=== PATIENT | female | born 1950 | race Caucasian/White ===

== ENCOUNTER → 2018-08-05 | Outpatient (CLI) | payer MEDICARE, OTHER ==
--- NOTE | 2018-08-05 15:48 | WOMENS IMAGING REPORT ---
EXAM DESCRIPTION: 3D SCREENING MAMMO BILAT COMPLETED DATE/TIME: 08/05/2018 10:58 am REASON FOR STUDY: BILATERAL SCREENING MAMMO 3D/Z12.31 Z12.31 ENCNTR SCREEN MAMMOGRAM FOR MALIGNANT NEOPLASM OF YISSEL COMPARISON: 07/23/2017 and 07/20/2016. TECHNIQUE: Standard craniocaudal and mediolateral oblique views of each breast recorded using digita l acquisition and breast tomosynthesis. LIMITATIONS: None. FINDINGS: Findings present which are benign by mammographic criteria. No suspicious masses, calcifi cations or architectural distortion. Pertinent benign findings: Stable small circumscribed nodules. Read with the assistance of CAD. .[facility] - R2 Cenova Version 1.3 .[facility] - R2 Cenova Version 1.3 .[facility] - R2 Cenova Version 2.4 .[facility] [place] - R2 Cenova Version 2.4 .[facility] - R2 [employer]ist Version 9.2 Benign mammographic findings may include one or more of the following: Smooth masses, popcorn/rim/co arse calcifications, asymmetries, post-procedure changes, and lesions with long-standing stability. IMPRESSION: BENIGN MAMMOGRAPHIC FINDINGS. BIRADS 2 BREAST DENSITY: b. There are scattered areas of fibroglandular density. BIRAD: 2 BENIGN FINDING(S) RECOMMENDATION: RECOMMENDATION: ROUTINE SCREENING COMMENT: The patient has been notified of the results by letter per SA requirements. Additional no tification policies are in place for contacting patient with suspicious or incomplete findings. Quality ID #[id number]: The [employer] recommends an annual screening mammogram for women aged 40 years or over. This facility utilizes a reminder system to ensure that all patients receive reminder letters, and/or direct phone calls for appointments. This includes reminders for routine scr eening mammograms, diagnostic mammograms, or other Breast Imaging Interventions when appropriate. Th is patient will be placed in the appropriate reminder system. The [employer] (ACR) has developed recommendations for screening MRI of the breast s in certain patient populations, to be used in conjunction with mammography. Breast MRI surveillanc e may be appropriate for women with more than 20% lifetime risk of developing breast cancer as deter mined by genetic testing, significant family history of the disease, or history of mantle radiation f or Hodgkins Disease. ACR Practice Guidelines 2008. DBT Technology DBT is a type of tomographic mammography. With conventional mammography, overlapping breast tissue ma y make lesions difficult to detect, even with good compression. DBT uses an x-ray tube that rotates a round the breast, taking images at different angles. These images are then combined to create thin sl ices of the breast that the radiologist can view as a 3D reconstruction. The [employer] unit can perform full-field digital mammograms (2D imaging); or DBT (3D imaging); or both, in a combination mode that quickly performs both the mammogram and the tomosynthesis scan while the breast is still compressed. PQRS 6045F: Fluoroscopic imaging is not utilized for breast tomosynthesis. TECHNICAL DOCUMENTATION: FINDING NUMBER: (1) ASSESSMENT: (1) JOB ID: [id number] [employer]- All Rights Reserved Reading location - IP/workstation name: [email or web address]
== END ==
LOC: WI 10:27
PROVIDERS: ATTEND Family Medicine
DX: Z12.31 Encounter for screening mammogram for malignant neoplasm of breast (principal)
CPT/HCPCS: 77063; 77067

== ENCOUNTER 2019-03-28 07:17 | Inpatient (IN) | payer MEDICARE, OTHER ==
[2019-03-28] MEDS ORDERED: ONDANSETRON HCL INJ/PF 4 MG/2 ML SDV IV ONE (07:52)
[2019-03-28] MEDS ORDERED: MORPHINE SULFATE 10 MG/ML INJ IV ONE (07:52)
[2019-03-28] MEDS ORDERED: DIPH/PERTUSS(ACELL)/TETANUS VAC/PF 0.5 ML SYR (>=10YO) IM ONE (07:53)
--- NOTE | 2019-03-28 07:57 | ER Document Report ---
ED General - General Chief Complaint: Wrist Injury Stated Complaint: FALL/WRIST PAIN Time Seen by Provider: 03/28/19 07:44 Mode of Arrival: Medic Information source: Patient, Emergency Med Personnel, [facility] Records Notes: 69-year-old female with end-stage renal disease, hypothyroidism, hyperlipidemia, hypertension presents after a trip and fall that occurred at home just prior to arrival. Patient states that she went to walk her dog when she tripped falling forward and striking her hand on a plastic fence and then landing on the ground. Patient denies head injury, loss of consciousness. She states she did land on both knees but denies any knee or hip pain. Patient denies any preceding chest pain, shortness of breath, dizziness. TRAVEL OUTSIDE OF THE [place] IN LAST 30 DAYS: No - HPI Onset: Just prior to arrival Onset/Duration: Sudden, Worse Quality of pain: Throbbing Severity: Moderate Pain Level: 2 Associated symptoms: denies: Chest pain, Nausea, Vomiting, Shortness of breath, Weakness Exacerbated by: Movement Relieved by: Denies Similar symptoms previously: Yes Recently seen / treated by doctor: No - Related Data Allergies/Adverse Reactions: No Known Allergies Allergy (Unverified 03/28/19 07:50) Past Medical History - General Information source: Patient, [facility] Records - Social History Smoking Status: Current Every Day Smoker Cigarette use (# per day): Yes - 15 Smoking Education Provided: Yes - Smoking cessation counseling was provided for 4 minutes at the bedside Frequency of alcohol use: None Drug Abuse: None Lives with: Friend Family History: Reviewed & Not Pertinent Patient has suicidal ideation: No Patient has homicidal ideation: No - Past Medical History Cardiac Medical History: Reports: Hx Hypercholesterolemia, Hx Hypertension Endocrine Medical History: Reports: Hx Hypothyroidism Renal/ Medical History: Reports: Hx End Stage Renal Disease Review of Systems - Review of Systems Notes: REVIEW OF SYSTEMS: CONSTITUTIONAL : Denies fever, chills, or sweats. Denies recent illness. Denies weight loss, recent hospitalizations. EENT: Denies visual changes, eye pain. Denies sore throat, oral lesions, difficulty swallowing. CARDIOVASCULAR: Denies chest pain. Denies palpitations. Denies lower extremity edema. RESPIRATORY: Denies cough. Denies shortness of breath, wheezing. GASTROINTESTINAL: Denies abdominal pain or distention. Denies nausea, vomiting, or diarrhea. Denies blood in vomitus, stools, or per rectum. Denies black, tarry stools. Denies constipation. GENITOURINARY: Denies difficulty urinating, painful urination, frequency, blood in urine, or vaginal discharge. MUSCULOSKELETAL: Denies back or neck pain or stiffness. + joint pain or swelling. SKIN: + Small laceration to the left wrist on the volar aspect HEMATOLOGIC : Denies easy bruising or bleeding. LYMPHATIC: Denies swollen glands. NEUROLOGICAL: Denies confusion or altered mental status. Denies loss of consciousness. Denies dizziness or lightheadedness. Denies headache. Denies weakness or paralysis. Denies problems difficulty with ambulation, slurred speech. Denies sensory loss, numbness, or tingling. Denies seizures. PSYCHIATRIC: Denies anxiety or stress. Denies depression, suicidal ideation, or homicidal ideation. Denies visual or auditory hallucinations. Physical Exam - Vital signs Vitals: Temp Pulse Resp BP Pulse Ox 97.5 F 74 22 H 160/69 H 95 03/28/19 07:24 03/28/19 07:24 03/28/19 07:24 03/28/19 07:24 03/28/19 07:24 - Notes Notes: PHYSICAL EXAMINATION: GENERAL: Well-appearing, well-nourished and in no acute distress. C collar in place. On backboard. GCS 15 HEAD: Atraumatic, normocephalic. EYES: Pupils equal round and reactive to light, extraocular movements intact, sclera anicteric, conjunctiva are normal. ENT: Nares patent, oropharynx clear without exudates. Moist mucous membranes. No hemanotympanum . No blood in nares. No dental fracture NECK: Normal range of motion, supple without lymphadenopathy. Trachea midline LUNGS: Breath sounds clear to auscultation bilaterally and equal. No wheezes rales or rhonchi. HEART: Regular rate and rhythm without murmurs. Pulses intact all throughout. ABDOMEN: Soft, nontender, nondistended abdomen. No guarding, no rebound. No masses appreciated. Musculoskeletal: Left wrist with obvious deformity, ecchymosis, swelling. Small puncture wound on the volar aspect of the left wrist without active bleeding. NEUROLOGICAL: Cranial nerves grossly intact. Normal speech, normal gait. Normal sensory, motor, and reflex exams. PSYCH: Normal mood, normal affect. SKIN: Warm, No active bleeding Course - Re-evaluation Re-evalutation: Wrist X-Ray 03/28/19 07:18 IMPRESSION: Fracture dislocation of the distal radius and ulna. Temp Pulse Resp BP Pulse Ox 97.5 F 74 22 H 160/69 H 95 03/28/19 07:24 03/28/19 07:24 03/28/19 07:24 03/28/19 07:24 03/28/19 07:24 Wrist X-Ray 03/28/19 10:32 IMPRESSION: Successful closed reduction. Laboratory 03/28/19 03/28/19 03/28/19 09:15 09:15 09:15 WBC 9.0 RBC 5.99 H Hgb 16.7 H Hct 51.3 H MCV 86 MCH 27.9 MCHC 32.5 RDW 17.3 H Plt Count 247 Seg Neutrophils % 82.0 H Lymphocytes % 11.9 L Monocytes % 4.4 Eosinophils % 0.9 Basophils % 0.8 Absolute Neutrophils 7.4 Absolute Lymphocytes 1.1 Absolute Monocytes 0.4 Absolute Eosinophils 0.1 Absolute Basophils 0.1 PT 12.3 INR 0.91 APTT 26.7 Sodium 143.1 Potassium 3.4 L Chloride 101 Carbon Dioxide 33 H Anion Gap 9 BUN 24 H Creatinine 1.03 Est GFR ( Amer) > 60 Est GFR (Non-Af Amer) 53 L Glucose 93 Calcium 9.1 Blood Type Antibody Screen 03/28/19 03/28/19 09:15 10:27 WBC RBC Hgb Hct MCV MCH MCHC RDW Plt Count Seg Neutrophils % Lymphocytes % Monocytes % Eosinophils % Basophils % Absolute Neutrophils Absolute Lymphocytes Absolute Monocytes Absolute Eosinophils Absolute Basophils PT INR APTT Sodium Potassium Chloride Carbon Dioxide Anion Gap BUN Creatinine Est GFR ( Amer) Est GFR (Non-Af Amer) Glucose Calcium Blood Type Cancelled A POSITIVE Antibody Screen Cancelled NEGATIVE Temp Pulse Resp BP Pulse Ox 97.5 F 60 18 129/115 H 97 03/28/19 07:24 03/28/19 10:05 03/28/19 13:01 03/28/19 13:01 03/28/19 13:01 Wrist X-Ray 03/28/19 10:32 IMPRESSION: Successful closed reduction. 69-year-old female with end-stage renal disease, hypothyroidism, hyperlipidemia, hypertension presents after a trip and fall that occurred at home just prior to arrival. Patient states that she went to walk her dog when she tripped falling forward and striking her hand on a plastic fence and then landing on the ground. Patient denies head injury, loss of consciousness. She states she did land on both knees but denies any knee or hip pain. Patient denies any preceding chest pain, shortness of breath, dizziness. Vital signs reviewed and patient is hypertensive but afebrile. No other evidence of trauma. X-rays of the wrist were obtained and does show fractures of both the distal radius and ulnar with significant volar displacement. 03/28/19 08:54 Dr. Seo called for consultation of unstable fracture. 03/28/19 10:31 Dr. Seo requesting medical admission and clearance for surgery. I did speak to Dr. Ray who would like me to speak to Dr. Torres to see if she can be evaluated by cardiology this weekend. I did speak to Dr. Beard who states that he can see the patient tomorrow morning and requested that I order an echocardiogram. 03/28/19 11:39 Patient's reduction was successful. Dressing placed on puncture wound. Tetanus updated. Ancef given. CBC, CMP, PT/INR are unremarkable. 03/28/19 13:21 Patient will be admitted to the medical floor. - Vital Signs Vital signs: Temp Pulse Resp BP Pulse Ox 97.5 F 60 18 129/115 H 97 03/28/19 07:24 03/28/19 10:05 03/28/19 13:01 03/28/19 13:01 03/28/19 13:01 - Laboratory Result Diagrams: 03/28/19 09:15 03/28/19 09:15 Laboratory results interpreted by me: 03/28/19 03/28/19 09:15 09:15 RBC 5.99 H Hgb 16.7 H Hct 51.3 H RDW 17.3 H Seg Neutrophils % 82.0 H Lymphocytes % 11.9 L Potassium 3.4 L Carbon Dioxide 33 H BUN 24 H Est GFR (Non-Af Amer) 53 L - Diagnostic Test Radiology reviewed: Image reviewed, Reports reviewed - EKG Interpretation by Me EKG shows normal: Sinus rhythm Rate: Normal Rhythm: NSR Procedures - Conscious Sedation Conscious sedation Time started: 11:38 Consent obtained: Yes Prior complications: Procedural sedation Pt with a severe systemic disease.: P3. - ASA Classification. Airway Evaluation: Large tongue Mallampati Classification: Class 4 Used during procedure: Suction available, IV access obtained, Pulse ox on pt., cafeteria monitor on pt. Medications administered: Fentanyl, Diprivan Reversal agents: None I personally performed/intraservice time: 31-45 min Complications: Yes - Brief episodes of hypoxia quickly resolved with jaw thrust - Joint Reduction/Fracture Care Left Wrist Time completed: 10:14 Consent obtained: Yes Conscious sedation: Yes Pre-procedure NV exam: Yes - Within normal limits Fracture: Closed Post-procedure NV exam: Yes Post-reduction x-ray: Joint reduced Reduction attempts: 1 - Splint placed Complications: Yes - Brief episode of hypoxia Discharge - Discharge Clinical Impression: Left wrist fracture Qualifiers: Encounter type: initial encounter Fracture type: closed Qualified Code(s): S62.102A - Fracture of unspecified carpal bone, left wrist, initial encounter for closed fracture Fall Qualifiers: Encounter type: initial encounter Qualified Code(s): W19.XXXA - Unspecified fall, initial encounter HTN (hypertension) Qualifiers: Hypertension type: unspecified Qualified Code(s): I10 - Essential (primary) hypertension CKD (chronic kidney disease) Qualifiers: Chronic kidney disease stage: unspecified stage Qualified Code(s): N18.9 - Chronic kidney disease, unspecified Condition: Good Disposition: ADMITTED INPATIENT Admitting Provider: Allan (Hospitalist) Unit Admitted: Medical Floor
--- NOTE | 2019-03-28 08:37 | RADIOLOGY REPORT (SQ) ---
EXAM DESCRIPTION: WRIST LEFT 3 VIEWS COMPLETED DATE/TIME: 03/28/2019 7:52 am REASON FOR STUDY: bone tenderness/deformity COMPARISON: None. NUMBER OF VIEWS: Three views. TECHNIQUE: AP, lateral, and oblique radiographic images acquired of the left wrist. LIMITATIONS: None. FINDINGS: MINERALIZATION: Osteopenia. BONES: Comminuted fractures of the distal radius with 1 shaft width volar displacement. Volar disloc ation of the distal ulna. SOFT TISSUES: No foreign body. OTHER: No other significant finding. IMPRESSION: Fracture dislocation of the distal radius and ulna. TECHNICAL DOCUMENTATION: JOB ID: [id number] [employer]- All Rights Reserved Reading location - IP/workstation name: [email or web address]
[2019-03-28] MEDS ORDERED: PROPOFOL INJ 200 MG/20 ML VIAL IV ONE ×2 (09:38→10:03)
[2019-03-28] MEDS ORDERED: FENTANYL CITRATE INJ/PF 100 MCG/2 ML AMPUL IV ONE (09:38)
[2019-03-28 09:39] LABS: ABSOLUTE BASOPHILS # (AUTO) 0.1 10^3/uL (0.0-0.2); ABSOLUTE EOSINOPHILS # (AUTO) 0.1 10^3/uL (0.0-0.6); ABSOLUTE LYMPHOCYTES (AUTO) 1.1 10^3/uL (0.5-4.7); ABSOLUTE MONOCYTES (AUTO) 0.4 10^3/uL (0.1-1.4); ABSOLUTE NEUT (AUTO) 7.4 10^3/uL (1.7-8.2); BASOPHILS % (AUTO) 0.8 % (0-2); EOSINOPHILS % (AUTO) 0.9 % (0-6); HEMATOCRIT 51.3 % (36.0-47.0); HEMOGLOBIN 16.7 g/dL (12.0-15.5); LYMPHOCYTES % (AUTO) 11.9 % (13-45); MEAN CORPUSCULAR HEMOGLOBIN 27.9 pg (27.0-33.4); MEAN CORPUSCULAR HGB CONC 32.5 g/dL (32.0-36.0); MEAN CORPUSCULAR VOLUME 86 fl (80-97); MONOCYTES % (AUTO) 4.4 % (3-13); PLATELET COUNT 247 10^3/uL (150-450); RED BLOOD COUNT 5.99 10^6/uL (3.72-5.28); RED CELL DISTRIBUTION WIDTH 17.3 % (11.5-14.0); TOTAL CELLS COUNTED % (AUTO) 100 %
[2019-03-28 09:42] LABS: INTERNATIONAL RATION (INR) 0.91; PARTIAL THROMBOPLASTIN TIME 26.7 SEC (23.5-35.8); PROTHROMBIN TIME 12.3 SEC (11.4-15.4)
[2019-03-28 10:04] LABS: ANION GAP 9 (5-19); BLOOD UREA NITROGEN 24 mg/dL (7-20); CALCIUM 9.1 mg/dL (8.4-10.2); CARBON DIOXIDE 33 mmol/L (22-30); CHLORIDE 101 mmol/L (98-107); GLUCOSE 93 mg/dL (75-110); POTASSIUM 3.4 mmol/L (3.6-5.0); SODIUM 143.1 mmol/L (137-145)
[2019-03-28] MEDS ORDERED: ACETAMINOPHEN 325 MG TABLET PO PRN (10:58)
[2019-03-28] MEDS ORDERED: ONDANSETRON HCL INJ/PF 4 MG/2 ML SDV IV PRN (10:58)
--- NOTE | 2019-03-28 11:18 | PDOC H&P ---
History of Present Illness Admission Date/PCP: 03/28/19 10:49 TC HARGROVE MD Patient complains of: History of fall with right wrist fracture History of Present Illness: SÁNCHEZ TRISTAN is a 69 year old female With history of hypertension, chronic kidney disease, COPD on home oxygen came to the emergency room after history of fall at home 6:00 this morning. According to the patient she is letting the dogs out she is tripped on the steps and hit the dog cage and came to the emergency room with right wrist pain x-rays indicates right arm distal radius and ulna fracture. The ER physician spoke to Dr. Bon Ray is going to see the patient today and probably do surgery tomorrow. Dr. Garcia also spoke to Dr. Berad he wants to do the echocardio gram today and he will see the patient. I went to see the patient she is comfortably in the bed communicating well agreed to stay in the hospital for further management. Past Medical History Cardiac Medical History: Reports: Hyperlipidema, Hypertension Pulmonary Medical History: Reports: Chronic Obstructive Pulmonary Disease (COPD) Endocrine Medical History: Reports: Hypothyroidism Renal/ Medical History: Reports: End Stage Renal Disease GI Medical History: Reports: None Psychiatric Medical History: Reports: None Past Surgical History Past Surgical History: Reports: Hysterectomy Social History Lives with: Friend Smoking Status: Current Every Day Smoker Frequency of Alcohol Use: Occasional Hx Recreational Drug Use: No Hx Prescription Drug Abuse: No - Advance Directive Resuscitation Status: Full Code Family History Family History: Reviewed & Not Pertinent Parental Family History Reviewed: Yes - History of hypertension Children Family History Reviewed: Yes Sibling(s) Family History Reviewed.: Yes Medication/Allergy Allergies/Adverse Reactions: No Known Allergies Allergy (Unverified 03/28/19 07:50) Review of Systems Constitutional: ABSENT: headache(s), weakness Eyes: ABSENT: visual disturbances Ears: ABSENT: hearing changes Nose, Mouth, and Throat: ABSENT: sore throat Cardiovascular: ABSENT: chest pain Respiratory: ABSENT: dyspnea Gastrointestinal: ABSENT: abdominal pain, dysphagia, heartburn Genitourinary: ABSENT: dysuria, hematuria Musculoskeletal: PRESENT: deformity, other - Complains of right wrist pain and swelling Neurological: PRESENT: other - h/o fall this morning Endocrine: ABSENT: cold intolerance, heat intolerance, polydipsia, polyuria Physical Exam Vital Signs: Temp Pulse Resp BP Pulse Ox 97.5 F 60 18 158/87 H 94 03/28/19 07:24 03/28/19 10:05 03/28/19 10:19 03/28/19 10:19 03/28/19 10:19 Intake & Output 03/27/19 03/28/19 03/29/19 06:59 06:59 06:59 Weight 124.3 kg General appearance: PRESENT: mild distress, obese Head exam: PRESENT: atraumatic Mouth exam: PRESENT: moist, tongue midline Teeth exam: PRESENT: poor dentation Neck exam: ABSENT: carotid bruit, JVD, lymphadenopathy, thyromegaly Respiratory exam: PRESENT: decreased breath sounds Cardiovascular exam: PRESENT: tachycardia GI/Abdominal exam: PRESENT: normal bowel sounds, soft. ABSENT: distended, guarding, mass, organolmegaly, rebound, tenderness Rectal exam: PRESENT: deferred Extremities exam: PRESENT: other - Right wrist is wrapped in Tyler wrap. Neurological exam: PRESENT: alert, awake, oriented to person, oriented to place, oriented to time, oriented to situation, CN II-XII grossly intact. ABSENT: motor sensory deficit Psychiatric exam: PRESENT: appropriate affect, normal mood. ABSENT: homicidal ideation, suicidal ideation Results Laboratory Results: 03/28/19 09:15 03/28/19 09:15 03/28/19 03/28/19 03/28/19 09:15 09:15 09:15 WBC 9.0 RBC 5.99 H Hgb 16.7 H Hct 51.3 H MCV 86 MCH 27.9 MCHC 32.5 RDW 17.3 H Plt Count 247 Seg Neutrophils % 82.0 H Lymphocytes % 11.9 L Monocytes % 4.4 Eosinophils % 0.9 Basophils % 0.8 Absolute Neutrophils 7.4 Absolute Lymphocytes 1.1 Absolute Monocytes 0.4 Absolute Eosinophils 0.1 Absolute Basophils 0.1 Sodium 143.1 Potassium 3.4 L Chloride 101 Carbon Dioxide 33 H Anion Gap 9 BUN 24 H Creatinine 1.03 Est GFR ( Amer) > 60 Est GFR (Non-Af Amer) 53 L Glucose 93 Calcium 9.1 Blood Type Cancelled Antibody Screen Cancelled Assessment and Plan - Diagnosis (1) Left wrist fracture Qualifiers: Encounter type: initial encounter Fracture type: closed Qualified Code(s): S62.102A - Fracture of unspecified carpal bone, left wrist, initial encounter for closed fracture Is this a current diagnosis for this admission?: Yes Plan: 03/28/2019-elderly female with history of hypertension CKD admitted with fall and right wrist fracture. She is going to admitted to [facility] Dr. Ferraro was notified by the ER I spoke to Dr. Beard he wants echocardiogram done today and. She is going to be on GI prophylaxis and mechanical DVT prophylaxis not starting any Lovenox because possible of surgery tomorrow morning. To start on IV morphine 1 mg every 4 PRN for pain. Aspiration fall seizure precautions are requested. To restart her home medications. She is going to be n.p.o. from midnight. PT consult OT consult was requested dialysis social worker consult was requested. (2) Fall Qualifiers: Encounter type: initial encounter Qualified Code(s): W19.XXXA - Unspecified fall, initial encounter Is this a current diagnosis for this admission?: Yes Plan: 03/28/2019-patient admitted with history of fall fall precautions are requested aspiration precautions are requested physical therapy consult was requested. (3) HTN (hypertension) Is this a current diagnosis for this admission?: No Plan: 03/28/2019-patient has history of chronic hypertension essential hypertension plan is to restart her home medications during the hospital stay. (4) CKD (chronic kidney disease) Is this a current diagnosis for this admission?: No Plan: 03/28/2019-patient given the history of end-stage renal disease but creatinine today is 1.03 within normal limits. Plan is to closely monitor the labs on daily basis. (5) Hypokalemia Is this a current diagnosis for this admission?: Yes Plan: 03/28/2019-patient serum potassium is 3.4 which is going to be supplemented today. - Time Time Spent with patient: 25-34 minutes Medications reviewed and adjusted accordingly: Yes Anticipated discharge: SNF
--- NOTE | 2019-03-28 11:27 | RADIOLOGY REPORT (SQ) ---
EXAM DESCRIPTION: WRIST LEFT 2 VIEWS COMPLETED DATE/TIME: 03/28/2019 10:40 am REASON FOR STUDY: post reduction COMPARISON: Earlier same day. NUMBER OF VIEWS: Two views. TECHNIQUE: AP and lateral radiographic images acquired of the left wrist. LIMITATIONS: None. FINDINGS: There has been placement of an external cast. Ulnar dislocation has been reduced. Improv ed alignment of distal radial fracture. IMPRESSION: Successful closed reduction. TECHNICAL DOCUMENTATION: JOB ID: [id number] [employer]- All Rights Reserved Reading location - IP/workstation name: [email or web address]
[2019-03-28 12:25] LABS: TROPONIN I 0.017 ng/mL
[2019-03-28 12:26] LABS: CREATINE KINASE MB 1.15 ng/mL (<4.55)
--- NOTE | 2019-03-28 12:37 | PDOC CONSULTATION ---
Consultation Consult Date: 03/28/19 Attending physician:: [facility] WILLIAM Provider Consulted: ZEN MCKENNA History of Present Illness Admission Date/PCP: 03/28/19 10:49 TC HARGROVE MD Patient complains of: Left wrist pain History of Present Illness: SÁNCHEZ TRISTAN is a 69 year old female who tripped and sustained a fall onto her outstretched left wrist. Was brought to the emergency room where x-rays demonstrated fracture according to the emergency room closed reduction was performed there is a small puncture wounds volarly weekly outside in as opposed to open fracture but was given antibiotics prophylactically. Patient states pain is worse with motion. Denies numbness. Notes previous injury on the same wrist but that essentially healed without limitations. Pain 8/. Past Medical History Cardiac Medical History: Reports: Hyperlipidema, Hypertension Pulmonary Medical History: Reports: Chronic Obstructive Pulmonary Disease (COPD) Endocrine Medical History: Reports: Hypothyroidism Renal/ Medical History: Reports: End Stage Renal Disease GI Medical History: Reports: None Psychiatric Medical History: Reports: None Past Surgical History Past Surgical History: Reports: Hysterectomy Social History Lives with: Friend Smoking Status: Current Every Day Smoker Frequency of Alcohol Use: Occasional Hx Recreational Drug Use: No Hx Prescription Drug Abuse: No - Advance Directive Resuscitation Status: Full Code Family History Family History: Reviewed & Not Pertinent Parental Family History Reviewed: No Children Family History Reviewed: No Sibling(s) Family History Reviewed.: No Medication/Allergy Allergies/Adverse Reactions: No Known Allergies Allergy (Unverified 03/28/19 07:50) Review of Systems Constitutional: ABSENT: chills, fever(s), headache(s), weight gain, weight loss Eyes: ABSENT: visual disturbances Ears: ABSENT: hearing changes Cardiovascular: ABSENT: chest pain, dyspnea on exertion, edema, orthropnea, palpitations Respiratory: ABSENT: cough, hemoptysis Gastrointestinal: ABSENT: abdominal pain, constipation, diarrhea, hematemesis, hematochezia, nausea, vomiting Genitourinary: ABSENT: dysuria, hematuria Musculoskeletal: PRESENT: as per HPI Integumentary: ABSENT: rash, wounds Neurological: ABSENT: abnormal gait, abnormal speech, confusion, dizziness, focal weakness, syncope Psychiatric: ABSENT: anxiety, depression, homidical ideation, suicidal ideation Endocrine: ABSENT: cold intolerance, heat intolerance, menstrual abnormalities, polydipsia, polyuria Hematologic/Lymphatic: ABSENT: easy bleeding, easy bruising, lymphadenopathy Physical Exam Vital Signs: Temp Pulse Resp BP Pulse Ox 97.5 F 60 20 149/65 H 94 03/28/19 07:24 03/28/19 10:05 03/28/19 12:00 03/28/19 12:00 03/28/19 12:01 Intake & Output 03/27/19 03/28/19 03/29/19 06:59 06:59 06:59 Weight 124.3 kg General appearance: PRESENT: no acute distress, well-developed, well-nourished Head exam: PRESENT: atraumatic, normocephalic Eye exam: PRESENT: conjunctiva pink, EOMI, PERRLA. ABSENT: scleral icterus Ear exam: PRESENT: normal external ear exam Mouth exam: PRESENT: moist, tongue midline Neck exam: PRESENT: full ROM. ABSENT: carotid bruit, JVD, lymphadenopathy, thyromegaly Respiratory exam: PRESENT: unlabored Cardiovascular exam: PRESENT: RRR. ABSENT: diastolic murmur, rubs, systolic murmur Pulses: PRESENT: normal dorsalis pedis pul, +2 pedal pulses bilateral Vascular exam: PRESENT: normal capillary refill GI/Abdominal exam: PRESENT: normal bowel sounds, soft. ABSENT: distended, guard ing, mass, organolmegaly, rebound, tenderness Rectal exam: PRESENT: deferred Musculoskeletal exam: PRESENT: other - Left wrist: Splint intact. Intact sensation to light touch. Two-point discrimination 5 mm median ulnar nerve distribution. Intact IP/MP flexion/extension. EPL/FPL intact. Compartments soft and compressible no sign of compartment syndrome. Neurological exam: PRESENT: alert, awake, oriented to person, oriented to place, oriented to time, oriented to situation, CN II-XII grossly intact. ABSENT: motor sensory deficit Psychiatric exam: PRESENT: appropriate affect, normal mood. ABSENT: homicidal ideation, suicidal ideation Skin exam: PRESENT: dry, intact, warm. ABSENT: cyanosis, rash Results Laboratory Results: 03/28/19 09:15 03/28/19 09:15 03/28/19 03/28/19 03/28/19 09:15 09:15 09:15 WBC 9.0 RBC 5.99 H Hgb 16.7 H Hct 51.3 H MCV 86 MCH 27.9 MCHC 32.5 RDW 17.3 H Plt Count 247 Seg Neutrophils % 82.0 H Lymphocytes % 11.9 L Monocytes % 4.4 Eosinophils % 0.9 Basophils % 0.8 Absolute Neutrophils 7.4 Absolute Lymphocytes 1.1 Absolute Monocytes 0.4 Absolute Eosinophils 0.1 Absolute Basophils 0.1 Sodium 143.1 Potassium 3.4 L Chloride 101 Carbon Dioxide 33 H Anion Gap 9 BUN 24 H Creatinine 1.03 Est GFR ( Amer) > 60 Est GFR (Non-Af Amer) 53 L Glucose 93 Calcium 9.1 Blood Type Cancelled Antibody Screen Cancelled 03/28/19 10:27 WBC RBC Hgb Hct MCV MCH MCHC RDW Plt Count Seg Neutrophils % Lymphocytes % Monocytes % Eosinophils % Basophils % Absolute Neutrophils Absolute Lymphocytes Absolute Monocytes Absolute Eosinophils Absolute Basophils Sodium Potassium Chloride Carbon Dioxide Anion Gap BUN Creatinine Est GFR ( Amer) Est GFR (Non-Af Amer) Glucose Calcium Blood Type A POSITIVE Antibody Screen NEGATIVE 03/28/19 03/28/19 09:15 09:15 Creatine Kinase 102 CK-MB (CK-2) 1.15 Troponin I 0.017 Impressions: Wrist X-Ray 03/28/19 10:32 IMPRESSION: Successful closed reduction. Status: Image reviewed by me - Pre-and post reduction radiographs of the left wrist demonstrate extra-articular displaced distal radius fracture with associated ulnar styloid fracture improved alignment after reduction. Assessment & Plan - Diagnosis (1) Colles' fracture of left radius Qualifiers: Encounter type: initial encounter Fracture type: open Open fracture type: open type I or II Qualified Code(s): S52.532B - Colles' fracture of left radius, initial encounter for open fracture type I or II Is this a current diagnosis for this admission?: Yes Plan: According to the emergency room physician there was small puncture hole volarly which may indicate open fracture however may also be outside in prophylactically patient will be treated with Ancef and the area was irrigated. At this point we will proceed with operative intervention of the distal radius once patient is medically optimized for operative intervention given her multiple medical comorbidities anticipate operative treatment on 03/30/2019. Risks and benefits of the surgical procedure were explained to the patient patient has verbalized understanding consented for surgical procedure which includes open reduction internal fixation left distal radius fracture. Risks include anesthetic complications, excessive bleeding, infection, injury to surrounding nerves, vessels and tendons, bruising, healing difficulties, scar formation, hardware complication, posttraumatic arthritis and any unforseen complication.
[2019-03-28] MEDS: OXYCODONE-ACETAMINOPHEN 5-325 MG TABLET PO PRN ×2 (12:42→20:32)
[2019-03-28] MEDS: CEFAZOLIN 1 GM/D5W RTU 1 GM/50 ML RTUPB IV SCH ×2 (12:44→17:43)
[2019-03-28 16:28] LABS: CREATINE KINASE MB 1.48 ng/mL (<4.55); TROPONIN I 0.032 ng/mL
[2019-03-28] MEDS ORDERED: CEFAZOLIN 2 GM/D5W RTU 2 GM/50 ML RTUPB IV SCH (18:00)
[2019-03-28] MEDS: FAMOTIDINE INJ/PF 20 MG/2 ML SDV IV SCH (21:45)
[2019-03-28 22:31] LABS: CREATINE KINASE MB 1.47 ng/mL (<4.55); TROPONIN I 0.017 ng/mL
--- NOTE | 2019-03-28 22:43 | EKG REPORT ---
SEVERITY:- ABNORMAL ECG - SINUS RHYTHM NONSPECIFIC INTRAVENTRICULAR CONDUCTION DELAY : Confirmed by: Marietta Beard MD 28-Mar-2019 22:42:03
[2019-03-29] MEDS: MORPHINE SULFATE 10 MG/ML INJ IV PRN ×2 (00:01→05:38)
[2019-03-29] MEDS: CEFAZOLIN SODIUM 2 GM in DEXTROSE 5%-WATER 100 ML IV SCH ×4 (00:06→17:38)
[2019-03-29] MEDS: OXYCODONE-ACETAMINOPHEN 5-325 MG TABLET PO PRN (04:23)
[2019-03-29 04:59] LABS: ABSOLUTE EOSINOPHILS # (AUTO) 0.2 10^3/uL (0.0-0.6); ABSOLUTE LYMPHOCYTES (AUTO) 1.6 10^3/uL (0.5-4.7); ABSOLUTE MONOCYTES (AUTO) 0.6 10^3/uL (0.1-1.4); ABSOLUTE NEUT (AUTO) 5.7 10^3/uL (1.7-8.2); BASOPHILS % (AUTO) 0.3 % (0-2); HEMATOCRIT 44.5 % (36.0-47.0); HEMOGLOBIN 14.7 g/dL (12.0-15.5); LYMPHOCYTES % (AUTO) 20.1 % (13-45); MEAN CORPUSCULAR HEMOGLOBIN 28.1 pg (27.0-33.4); MEAN CORPUSCULAR VOLUME 85 fl (80-97); MONOCYTES % (AUTO) 6.9 % (3-13); PLATELET COUNT 186 10^3/uL (150-450); RED BLOOD COUNT 5.21 10^6/uL (3.72-5.28); RED CELL DISTRIBUTION WIDTH 16.9 % (11.5-14.0); SEGMENTED NEUTROPHILS % (AUTO) 70.7 % (42-78); TOTAL CELLS COUNTED % (AUTO) 100 %
[2019-03-29 05:03] LABS: INTERNATIONAL RATION (INR) 0.96; PROTHROMBIN TIME 12.8 SEC (11.4-15.4)
[2019-03-29 05:20] LABS: ALANINE AMINOTRANSFERASE 17 U/L (9-52); ALBUMIN 3.4 g/dL (3.5-5.0); ALKALINE PHOSPHATASE 86 U/L (38-126); ANION GAP 7 (5-19); ASPARTATE AMINO TRANSFERASE 26 U/L (14-36); BILIRUBIN,DIRECT 0.2 mg/dL (0.0-0.4); BILIRUBIN,TOTAL 0.5 mg/dL (0.2-1.3); BLOOD UREA NITROGEN 23 mg/dL (7-20); CALCIUM 8.9 mg/dL (8.4-10.2); CARBON DIOXIDE 32 mmol/L (22-30); CHLORIDE 100 mmol/L (98-107); CHOLESTEROL 127.22 mg/dL (0-200); GLUCOSE 101 mg/dL (75-110); POTASSIUM 3.7 mmol/L (3.6-5.0); SODIUM 139.2 mmol/L (137-145); TOTAL PROTEIN 5.8 g/dL (6.3-8.2); TRIGLYCERIDES 110 mg/dL (<150)
[2019-03-29 05:32] LABS: DIRECT LDL 56 mg/dL (<100)
[2019-03-29] MEDS ORDERED: ALBUTEROL SULFATE HFA (90 MCG/PUFF) 200 PUFF/8.5 GM MDI IH PRN (10:06)
[2019-03-29] MEDS ORDERED: LEVOTHYROXINE SODIUM 0.05 MG TABLET PO SCH (10:15)
[2019-03-29] MEDS ORDERED: DEXTROSE 50%-WATER 25 GM/50 ML DISP.SYRIN IV PRN ×2 (10:51)
[2019-03-29] MEDS ORDERED: GLUCAGON,HUMAN RECOMB 1 MG INJ SUBCUT PRN (10:51)
[2019-03-29] MEDS ORDERED: DEXTROSE 40% GEL 15 GM TUBE PO PRN ×2 (10:51)
--- NOTE | 2019-03-29 10:51 | PDOC PROGRESS REPORT ---
Subjective Progress Note for:: 03/29/19 Subjective:: Patient lying in bed comfortably. No issues overnight. States the numbness in her fingers have resolved. After further questioning however she has see me in the past for carpal tunnel syndrome and does continue to have occasional symptoms. Reason For Visit: RIGHT ARM FRACTURE Physical Exam Vital Signs: Temp Pulse Resp BP Pulse Ox 97.9 F 70 18 134/45 H 90 L 03/29/19 08:07 03/29/19 08:07 03/29/19 08:07 03/29/19 08:07 03/29/19 08:07 Intake & Output 03/28/19 03/29/19 03/30/19 06:59 06:59 06:59 Intake Total 1000 Balance 1000 Weight 125.7 kg General appearance: PRESENT: no acute distress, well-developed, well-nourished Head exam: PRESENT: atraumatic, normocephalic Eye exam: PRESENT: conjunctiva pink, EOMI, PERRLA. ABSENT: scleral icterus Ear exam: PRESENT: normal external ear exam Mouth exam: PRESENT: moist, tongue midline Neck exam: PRESENT: full ROM. ABSENT: carotid bruit, JVD, lymphadenopathy, thyromegaly Cardiovascular exam: PRESENT: RRR. ABSENT: diastolic murmur, rubs, systolic murmur Pulses: PRESENT: normal dorsalis pedis pul, +2 pedal pulses bilateral Vascular exam: PRESENT: normal capillary refill GI/Abdominal exam: PRESENT: normal bowel sounds, soft. ABSENT: distended, guarding, mass, organolmegaly, rebound, tenderness Rectal exam: PRESENT: deferred Musculoskeletal exam: PRESENT: other - Left upper extremity: Splint intact. Intact flexion extension of the IP/MP joints. EPL/FPL intact. Cap refill less than 2 seconds. Two-point discrimination 5-6 mm median/ulnar nerve distribution. No pain with passive stretch. Compartments soft and compressible. Neurological exam: PRESENT: alert, awake, oriented to person, oriented to place, oriented to time, oriented to situation, CN II-XII grossly intact. ABSENT: motor sensory deficit Psychiatric exam: PRESENT: appropriate affect, normal mood. ABSENT: homicidal ideation, suicidal ideation Skin exam: PRESENT: dry, intact, warm. ABSENT: cyanosis, rash Results Laboratory Results: 03/29/19 04:19 03/29/19 04:19 03/28/19 03/29/19 03/29/19 10:27 04:19 04:19 WBC 8.0 RBC 5.21 Hgb 14.7 Hct 44.5 MCV 85 MCH 28.1 MCHC 33.0 RDW 16.9 H Plt Count 186 Seg Neutrophils % 70.7 Lymphocytes % 20.1 Monocytes % 6.9 Eosinophils % 2.0 Basophils % 0.3 Absolute Neutrophils 5.7 Absolute Lymphocytes 1.6 Absolute Monocytes 0.6 Absolute Eosinophils 0.2 Absolute Basophils 0.0 Sodium 139.2 Potassium 3.7 Chloride 100 Carbon Dioxide 32 H Anion Gap 7 BUN 23 H Creatinine 1.06 Est GFR ( Amer) > 60 Est GFR (Non-Af Amer) 51 L Glucose 101 Calcium 8.9 Magnesium 2.5 H Total Bilirubin 0.5 AST 26 ALT 17 Alkaline Phosphatase 86 Total Protein 5.8 L Albumin 3.4 L Triglycerides 110 Cholesterol 127.22 LDL Cholesterol Direct 56 VLDL Cholesterol 22.0 HDL Cholesterol 54 TSH Blood Type A POSITIVE Antibody Screen NEGATIVE 03/29/19 04:19 WBC RBC Hgb Hct MCV MCH MCHC RDW Plt Count Seg Neutrophils % Lymphocytes % Monocytes % Eosinophils % Basophils % Absolute Neutrophils Absolute Lymphocytes Absolute Monocytes Absolute Eosinophils Absolute Basophils Sodium Potassium Chloride Carbon Dioxide Anion Gap BUN Creatinine Est GFR ( Amer) Est GFR (Non-Af Amer) Glucose Calcium Magnesium Total Bilirubin AST ALT Alkaline Phosphatase Total Protein Albumin Triglycerides Cholesterol LDL Cholesterol Direct VLDL Cholesterol HDL Cholesterol TSH 12.30 H Blood Type Antibody Screen 03/28/19 03/28/19 03/28/19 09:15 09:15 15:50 Creatine Kinase 102 141 H CK-MB (CK-2) 1.15 Troponin I 0.017 03/28/19 03/28/19 03/28/19 15:50 21:42 21:42 Creatine Kinase 161 H CK-MB (CK-2) 1.48 1.47 Troponin I 0.032 0.017 Impressions: Wrist X-Ray 03/28/19 10:32 IMPRESSION: Successful closed reduction. Assessment & Plan - Diagnosis (1) Colles' fracture of left radius Qualifiers: Encounter type: initial encounter Fracture type: open Open fracture type: open type I or II Qualified Code(s): S52.532B - Colles' fracture of left radius, initial encounter for open fracture type I or II Is this a current diagnosis for this admission?: Yes Plan: Plan is to proceed with operative treatment on 03/30/2019 once patient is medically optimized. We will continue Ancef prophylactically. Also discussed addition of carpal tunnel release given patient's previous history and review of my office notes which patient had been treated for in the nonoperatively for in the past. After discussing treatment options once again patient verbalized understanding consented for left wrist open reduction to fixation distal radius fracture with carpal tunnel release.
[2019-03-29] MEDS: NICOTINE 14 MG/24 HR PATCH.TD24 TD SCH ×2 (10:54→11:13)
[2019-03-29] MEDS: OXYCODONE HCL IR 5 MG TABLET PO PRN ×3 (10:54→22:47)
[2019-03-29] MEDS: POTASSIUM CHLORIDE 10 MEQ CAPSULE.ER PO SCH (10:54)
[2019-03-29] MEDS: FAMOTIDINE INJ/PF 20 MG/2 ML SDV IV SCH ×2 (11:05→22:47)
[2019-03-29] MEDS ORDERED: FUROSEMIDE 80 MG TABLET PO SCH (18:00)
--- NOTE | 2019-03-29 19:54 | PDOC PROGRESS REPORT ---
Subjective Progress Note for:: 03/29/19 Subjective:: This patient is feeling pretty good today. No chest pain or difficulty breathing. No nausea or vomiting. Her only complaint is that she does have left arm pain at the fracture site. The pain is also radiating into her elbow. Reason For Visit: RIGHT ARM FRACTURE Physical Exam Vital Signs: Temp Pulse Resp BP Pulse Ox 98.3 F 62 18 115/57 L 95 03/29/19 16:32 03/29/19 16:32 03/29/19 16:32 03/29/19 16:32 03/29/19 16:32 Intake & Output 03/28/19 03/29/19 03/30/19 06:59 06:59 06:59 Intake Total 1000 840 Output Total 200 Balance 1000 640 Weight 125.7 kg General appearance: PRESENT: no acute distress, cooperative, obese Head exam: PRESENT: atraumatic, normocephalic Eye exam: ABSENT: conjunctival injection, scleral icterus Ear exam: PRESENT: normal external ear exam Mouth exam: PRESENT: moist, neck supple, tongue midline Neck exam: ABSENT: tracheostomy Respiratory exam: PRESENT: clear to auscultation sundeep, unlabored. ABSENT: rales, rhonchi, wheezes Cardiovascular exam: PRESENT: RRR. ABSENT: systolic murmur Pulses: PRESENT: normal radial pulses GI/Abdominal exam: PRESENT: normal bowel sounds, soft. ABSENT: distended, firm, guarding, tenderness Rectal exam: PRESENT: deferred Gentrourinary exam: ABSENT: indwelling catheter Extremities exam: PRESENT: other - Left distal arm is casted, sensation is intact distally. ABSENT: pedal edema Musculoskeletal exam: PRESENT: ambulatory - With minimal assistance Neurological exam: PRESENT: alert, awake, oriented to person, oriented to place, oriented to time, oriented to situation, CN II-XII grossly intact Psychiatric exam: PRESENT: appropriate affect. ABSENT: anxious Skin exam: PRESENT: dry, intact, warm Results Laboratory Results: 03/29/19 04:19 03/29/19 04:19 03/29/19 03/29/19 03/29/19 04:19 04:19 04:19 WBC 8.0 RBC 5.21 Hgb 14.7 Hct 44.5 MCV 85 MCH 28.1 MCHC 33.0 RDW 16.9 H Plt Count 186 Seg Neutrophils % 70.7 Lymphocytes % 20.1 Monocytes % 6.9 Eosinophils % 2.0 Basophils % 0.3 Absolute Neutrophils 5.7 Absolute Lymphocytes 1.6 Absolute Monocytes 0.6 Absolute Eosinophils 0.2 Absolute Basophils 0.0 Sodium 139.2 Potassium 3.7 Chloride 100 Carbon Dioxide 32 H Anion Gap 7 BUN 23 H Creatinine 1.06 Est GFR ( Amer) > 60 Est GFR (Non-Af Amer) 51 L Glucose 101 Calcium 8.9 Magnesium 2.5 H Total Bilirubin 0.5 AST 26 ALT 17 Alkaline Phosphatase 86 Total Protein 5.8 L Albumin 3.4 L Triglycerides 110 Cholesterol 127.22 LDL Cholesterol Direct 56 VLDL Cholesterol 22.0 HDL Cholesterol 54 TSH 12.30 H 03/28/19 03/28/19 03/28/19 09:15 09:15 15:50 Creatine Kinase 102 141 H CK-MB (CK-2) 1.15 Troponin I 0.017 03/28/19 03/28/19 03/28/19 15:50 21:42 21:42 Creatine Kinase 161 H CK-MB (CK-2) 1.48 1.47 Troponin I 0.032 0.017 Impressions: Wrist X-Ray 03/28/19 10:32 IMPRESSION: Successful closed reduction. Assessment and Plan - Diagnosis (1) Colles' fracture of left radius Qualifiers: Encounter type: initial encounter Fracture type: open Open fracture type: open type I or II Qualified Code(s): S52.532B - Colles' fracture of left radius, initial encounter for open fracture type I or II Is this a current diagnosis for this admission?: Yes Plan: Dr. jacob plans to operate on this patient tomorrow he and I spoke about this today. She will need to see Dr. Beard for evaluation prior to the surgery. Dr. Beard was consulted on admission. (2) CKD (chronic kidney disease) Qualifiers: Chronic kidney disease stage: unspecified stage Qualified Code(s): N18.9 - Chronic kidney disease, unspecified Is this a current diagnosis for this admission?: No Plan: BUN slightly elevated at 23 today. She seems to be eating and drinking well. Making good urine. Will continue to monitor her renal function. (3) Fall Qualifiers: Encounter type: initial encounter Qualified Code(s): W19.XXXA - Unspecified fall, initial encounter Is this a current diagnosis for this admission?: Yes Plan: Patient has had multiple falls. Fall precautions are in place. PT has been consulted and they are seeing her, she is requiring min assist in general. We will follow her postop to see if she needs rehab. (4) HTN (hypertension) Qualifiers: Hypertension type: unspecified Qualified Code(s): I10 - Essential (primary) hypertension Is this a current diagnosis for this admission?: Yes Plan: BP is good this evening. No changes to be made right now. (5) Hypokalemia Is this a current diagnosis for this admission?: Yes Plan: resolved. - Time Time Spent with patient: 35 or more minutes - Inpatient Certification Based on my medical assessment, after consideration of the patient's comorbidities, presenting symptoms, or acuity I expect that the services needed warrant INPATIENT care.: Yes I certify that my determination is in accordance with my understanding of Medicare's requirements for reasonable and necessary INPATIENT services [42 CFR 412.3e].: Yes Medical Necessity: Need for Surgery
--- NOTE | 2019-03-29 20:47 | XCELERA REPORT ---
[address] [address] Transthoracic Echocardiogram Report Name: SÁNCHEZ TRISTAN Age: 69 yrs Gender: Female : 1950 Patient Status: Inpatient Patient Location: [address] [place], [place] [address] Study Date: 03/28/2019 06:15 PM Height: 63 in Weight: 274 lb BSA: 2.2 m2 Procedure: A two-dimensional transthoracic echocardiogram with color flow and Doppler was performed. The study was technically difficult with many images being suboptimal in quality. Reason For Study: MURMUR / Pre-Op / CHF History: MURMUR / Pre-Op / CHF. Ordering Physician: [facility] WILLIAM Performed By: Dawna Gorman Interpretation Summary The left ventricle is normal in size. There is normal left ventricular wall thickness. LV EF is > than 60% Left ventricular systolic function is normal. Doppler measurements suggest impaired left ventricular relaxation, which is associated with grade I/IV or mild diastolic dysfunction No defenite regional wall motion abnormality. There is no thrombus. Cannot assess for ASD,VSD,or PFO. The right ventricle is not well visualized secondary to technical limitations Right atrium not well visualized secondary to technical limitations The left atrial size is normal. There is no evidence of mitral valve prolapse. There is no vegetation seen on the mitral valve. There is no mitral valve stenosis. There is no aortic valve stenosis There is no LVOT obstruction. No aortic regurgitation is present. There is no tricuspid stenosis. There is a trace amount of tricuspid regurgitation No significant pulmonary hypertension.RVSP is 29 to 34 mm of Hg , with RA mean of 5 to10. There is no pulmonic valvular stenosis. There is a trace amount of pulmonic regurgitation The aortic root is normal size. The inferior vena cava appeared normal and decreased > 50% with respiration (RAP 5-10 mmHg) There is no pericardial effusion. MMode/2D Measurements & Calculations RVDd: 3.0 cm LVIDd: 5.0 cm FS: 30.7 % Ao root diam: 3.0 cm IVSd: 0.73 cm LVIDs: 3.5 cm EDV(Teich): 118.6 ml Ao root area: 7.3 cm2 LVPWd: 0.77 cm ESV(Teich): 49.9 ml LA dimension: 3.6 cm EF(Teich): 57.9 % Doppler Measurements & Calculations MV E max aliyah: MV P1/2t max aliyah: Ao V2 max: LV V1 max P.2 cm/sec 94.7 cm/sec 128.6 cm/sec 5.0 mmHg MV A max aliyah: MV P1/2t: 54.6 msec Ao max PG: LV V1 max: 90.5 cm/sec MVA(P1/2t): 4.0 cm2 6.6 mmHg 111.3 cm/sec MV E/A: 0.88 MV dec slope: 507.7 cm/sec2 MV dec time: 0.23 sec PA V2 max: PI end-d aliyah: TR max aliyah: MV P1/2t-pr_phl: 85.5 cm/sec 127.6 cm/sec 247.0 cm/sec 54.6 msec PA max PG: TR max P.9 mmHg 24.4 mmHg Left Ventricle The left ventricle is normal in size. There is normal left ventricular wall thickness. LV EF is > than 60%. Left ventricular systolic function is normal. Doppler measurements suggest impaired left ventricular relaxation, which is associated with grade I/IV or mild diastolic dysfunction. No defenite regional wall motion abnormality. There is no thrombus. Cannot assess for ASD,VSD,or PFO. Right Ventricle The right ventricle is not well visualized secondary to technical limitations. Atria Right atrium not well visualized secondary to technical limitations. The left atrial size is normal. Mitral Valve There is no evidence of mitral valve prolapse. There is no vegetation seen on the mitral valve. There is no mitral valve stenosis. Aortic Valve There is no aortic valve stenosis. There is no LVOT obstruction. No aortic regurgitation is present. Tricuspid Valve There is no tricuspid stenosis. There is a trace amount of tricuspid regurgitation. No significant pulmonary hypertension.RVSP is 29 to 34 mm of Hg , with RA mean of 5 to10. Pulmonic Valve There is no pulmonic valvular stenosis. There is a trace amount of pulmonic regurgitation. Great Vessels The aortic root is normal size. The inferior vena cava appeared normal and decreased > 50% with respiration (RAP 5-10 mmHg). Effusions There is no pericardial effusion. : MERCY WILLIAM > Marietta Beard
[2019-03-29] MEDS: MAGNESIUM OXIDE 400 MG TABLET PO SCH (21:00)
[2019-03-29] MEDS: PREGABALIN 50 MG CAPSULE PO SCH (22:47)
--- NOTE | 2019-03-29 22:57 | PDOC CONSULTATION ---
Consultation-Blank Consultation: CARDIOLOGY CONSULTATION by Dr. Marietta Beard on 03/29/2019. Patient seen at 7:30 PM on 03/29/2019. REASON FOR CONSULTATION: Preoperative cardiac risk assessment in a patient with history of hypertension and chronic kidney disease. CONSULT REQUESTING PHYSICIAN: Dr. Garcia, ER physician, and , [facility] hospitalist physician. HISTORY OF PRESENT ILLNESS: Patient is a 75-year-old female with history of hypertension COPD and chronic kidney disease, hypothyroidism and hyperlipidemia who tripped and fell and sustained a Colles' fracture of her left radius. The patient is for surgical repair of this, hence cardiac risk assessment requested. The patient states that she did not lose consciousness, and the following secondary to her tripping. There is no history of coronary artery disease. She has no history of congestive heart failure. There is no chest pains or discomfort or anginal symptoms. There is no palpitations. There is no PND orthopnea. The patient has a history of COPD, and states she is still smoking,, and states that there are no symptoms suggestive of acute exacerbation of COPD or pneumonia. There is been no wheezing. There is no history of TIA or CVA. She does have a history of chronic kidney disease, and a GFR now is 51 which is consistent with a stage IIIa chronic kidney disease. Past Medical History Cardiac Medical History: Reports: Hyperlipidema, Hypertension no history of coronary artery disease, no history of congestive heart failure, no history of arrhythmias. No history of syncope. Pulmonary Medical History: Reports: Chronic Obstructive Pulmonary Disease (COPD) patient is a smoker. No history of sleep apnea or pulmonary embolism. Endocrine Medical History: Reports: Hypothyroidism. No history of diabetes mellitus. Renal/ Medical History: Reports: End Stage Renal Disease GI Medical History: Reports: No history of peptic ulcer disease or GERD. No history of GI bleed. No history of hepatitis. No history of jaundice. Psychiatric Medical History: Reports: Past history of depression. She states recently there is no signs or symptoms of depression. KINDERGARTNER: No history of TIA CVA. No history of headaches migraines or seizures. Past Surgical History Past Surgical History: Reports: Hysterectomy due to endometriosis, and has also had a right knee replacement. Social History Lives with: Friend Smoking Status: Current Every Day Smoker Frequency of Alcohol Use: Occasional Hx Recreational Drug Use: No Hx Prescription Drug Abuse: No - Advance Directive Resuscitation Status: Full Code. She states her friends are her surrogate healthcare decision maker. Family History; History of hypertension Medication/Allergy No Known Allergies Allergy . Review of Systems Constitutional: ABSENT: headache(s), weakness. No history of fever chills or Reiger's. Eyes: ABSENT: visual disturbances. Ears: ABSENT: hearing changes. No history of vertigo. No history of tinnitus Nose, Mouth, and Throat: ABSENT: sore throat. No history of odynophagia or dysphagia. No history of altered taste sensation in the mouth. Cardiovascular: ABSENT: chest pain Respiratory: ABSENT: dyspnea Gastrointestinal: ABSENT: abdominal pain, dysphagia, heartburn Genitourinary: ABSENT: dysuria, hematuria Musculoskeletal: PRESENT: deformity, other - Complains of right wrist pain and swelling. History of accidental fall Neurological: No history of TIA or CVA. No history of headaches migraines or seizures. No history of frequent falls. Endocrine: ABSENT: cold intolerance, heat intolerance, polydipsia, polyuria. SKIN: No history of pruritus. No history of allergic discoloration of the skin. PHYSICAL EXAMINATION: The patient is morbidly obese. In no acute distress. Selected Entries 03/29/19 03/29/19 16:32 20:08 Temperature 97.8 F Temperature Oral Source Pulse Rate 70 Respiratory 17 Rate Blood Pressure 151/86 H BP Location Right Arm BP Position Sitting O2 Sat by Pulse 99 Oximetry Oxygen Flow 2.50 Rate Oxygen Delivery Nasal Cannula Nasal Cannula Method HEAD: Is atraumatic normocephalic. EYES: Pupils equal round regular reactive to light accommodation. There is no conjunctival pallor. There is no scleral icterus. EARS: Tympanic memories are intact. External auditory canals are clear. NOSE: There is no deviated nasal septum. There is no inflammation of the nasal mucous membranes. MOUTH: Mucous membranes of mouth are moist. Tongue is moist. There is no ulcers. There is no bleeding from the gums. THROAT: There is no redness of the oropharynx. There is no exudates. SKIN: There is no skin rashes. There is no skin lesions. There is no particular ecchymosis. NECK: Is supple. There is no JVD. Carotids are equal without any bruits. There is no lymphadenopathy. There is no goiter. There is no accessory muscle respiration use. Trachea is central. LUNGS: Shows diminished air entry prolonged expiration without any rhonchi rales or wheezing. On percussion there is hyperresonance throughout. There is no chest wall tenderness on palpation. HEART: S1-S2 is heard. There is no S3 gallop. There is no S3 gallop. There is a systolic murmur left sternal border and the apex without evidence of aortic stenosis or significant mitral regurgitation or aortic regurgitation. There is no rub. ABDOMEN: Is obese. Nontender. There is no paraspinal megaly. Bowel sounds are well heard. EXTREMITIES: The left forearm and wrist are on bandaged with an Tyler wrapping. Femorals are diminished. There is no femoral bruits. Femorals are difficult to palpate since a very deep. Leg pulses are diminished. There is no pedal edema. There is no DVT or cellulitis. There is no calf tenderness. There is no sinus or clubbing. KINDERGARTNER: The patient is conscious awake alert oriented x3 with no focal deficits. PSYCHIATRIC: The patient judgment insight are intact her affect is normal. Current Medications Acetaminophen (Tylenol 325 Mg Tablet) 325 mg PO Q4HP PRN PRN Reason: FEVER >101 Stop: 04/27/19 10:57 Albuterol (Proair Hfa Inhalation Aerosol 8.5 Gm Mdi) 2 puff IH Q6HP PRN PRN Reason: FOR WHEEZING Stop: 04/28/19 10:05 Dextrose (Dextrose Inj 50% Syringe (25 Gm/50 Ml)) 12.5 gm IV PRN PRN; Protocol PRN Reason: FOR BG 50-69 IN ALERT PATIENT Stop: 04/28/19 10:50 Dextrose (Dextrose Inj 50% Syringe (25 Gm/50 Ml)) 25 gm IV PRN PRN; Protocol PRN Reason: See Label Comments Stop: 04/28/19 10:50 Famotidine (Pepcid Inj/Pf 20 Mg/2 Ml Sdv) 20 mg IV Q12 [facility]RI[facility]INE Stop: 04/27/19 21:59 Last Admin: 03/29/19 22:47 Dose: 20 mg Documented by: Furosemide (Lasix 80 Mg Tablet) 120 mg PO QAM [facility]RISTINE Stop: 04/29/19 07:59 Furosemide (Lasix 80 Mg Tablet) 80 mg PO QPM [facility]STINE Stop: 04/28/19 17:59 Last Admin: 03/29/19 17:38 Dose: 80 mg Documented by: Glucagon (Glucagen Inj 1 Mg Vial) 1 mg SUBCUT PRN PRN; Protocol PRN Reason: Evaluate for BG < 70 Stop: 04/28/19 10:50 Glucose (Glutose 40% Gel 15 Gm Tube) 15 gm PO PRN PRN; Protocol PRN Reason: For BG 50-69 in Alert Patient Stop: 04/28/19 10:50 Glucose (Glutose 40% Gel 15 Gm Tube) 30 gm PO PRN PRN; Protocol PRN Reason: FOR BG < 50 IN ALERT PATIENT Stop: 04/28/19 10:50 Cefazolin Sodium 2 gm/ (Dextrose) 100 mls @ 200 mls/hr IV Q6 CHRISTINE Stop: 04/05/19 00:00 Last Admin: 03/30/19 00:07 Dose: 200 mls/hr, 200 mls/hr Documented by: Levothyroxine Sodium (Synthroid 0.05 Mg Tablet) 0.05 mg PO Q6AM [facility] Stop: 04/28/19 10:14 Last Admin: 03/29/19 10:54 Dose: 0.05 mg Documented by: Magnesium Oxide (Mag-Ox 400 Mg Tablet) 400 mg PO BID [facility] Stop: 04/28/19 17:59 Last Admin: 03/29/19 21:00 Dose: Not Given Documented by: Metoprolol Succinate (Toprol Xl 50 Mg Tab.Sr) 25 mg PO DAILY [facility] Stop: 04/29/19 10:29 Nicotine (Nicoderm 14 Mg/24 Hr Transdermal Patch) 1 each TD DAILY [facility] Stop: 04/28/19 09:59 Last Admin: 03/29/19 11:13 Dose: Not Given Documented by: Ondansetron HCl (Zofran Inj/Pf 4 Mg/2 Ml Sdv) 4 mg IV Q6HP PRN PRN Reason: FOR NAUSEA/VOMITING Stop: 04/27/19 10:57 Oxycodone HCl (Oxy-Ir 5 Mg Tablet) 5 mg PO Q4HP PRN PRN Reason: FOR PAIN SCALE 3-5 Stop: 04/05/19 10:03 Last Admin: 03/29/19 22:47 Dose: 5 mg Documented by: Potassium Chloride (Klor-Con 10 Meq Capsule Er) 20 meq PO DAILY [facility] Stop: 04/28/19 10:59 Last Admin: 03/29/19 10:54 Dose: 20 meq Documented by: Pregabalin (Lyrica 50 Mg Capsule) 50 mg PO Q12 [facility] Stop: 04/28/19 21:59 Last Admin: 03/29/19 22:47 Dose: 50 mg Documented by: Sodium Chloride (Saline Flush 2.5 Ml Monoject Prefil Syrin) 2.5 ml IV Q8 [facility] Stop: 04/27/19 13:59 Last Admin: 03/29/19 22:47 Dose: Not Given Documented by: Discontinued Medications Diphtheria/Tetanus/Acell Pertussis (Boostrix Vaccine 0.5 Ml Syringe) 0.5 ml IM NOW ONE Stop: 03/28/19 07:54 Last Admin: 03/28/19 08:42 Dose: 0.5 ml Documented by: Fentanyl Citrate (Sublimaze Inj/Pf 100 Mcg/2 Ml Ampule) 100 mcg IV NOW ONE Stop: 03/28/19 09:39 Last Admin: 03/28/19 10:00 Dose: 100 mcg Documented by: Cefazolin Sodium/Dextrose (Ancef Rtu 1 Gm/D5w 50 Ml Premix Bag) 1 gm in 50 mls @ 100 mls/hr IV Q6 [facility] Stop: 04/04/19 11:59 Last Infusion: 03/28/19 20:30 Dose: Infused Documented by: Cefazolin Sodium/Dextrose (Ancef Rtu 2 Gm/D5w 50 Ml Premix Bag) 2 gm in 50 mls @ 100 mls/hr IV Q6 [facility] Stop: 04/04/19 17:59 Last Admin: 03/28/19 20:30 Dose: Not Given Documented by: Morphine Sulfate (Morphine 10 Mg/Ml Inj) 4 mg IV NOW ONE Stop: 03/28/19 07:53 Last Admin: 03/28/19 08:42 Dose: 4 mg Documented by: Morphine Sulfate (Morphine 10 Mg/Ml Inj) 2 mg IV Q4HP PRN PRN Reason: SEVERE PAIN Stop: 04/04/19 12:25 Last Admin: 03/29/19 05:38 Dose: 2 mg Documented by: Ondansetron HCl (Zofran Inj/Pf 4 Mg/2 Ml Sdv) 4 mg IV NOW ONE Stop: 03/28/19 07:53 Last Admin: 03/28/19 08:42 Dose: 4 mg Documented by: Oxycodone/Acetaminophen (Percocet 5-325 Mg Tablet) 2 tab PO Q6HP PRN PRN Reason: MILD PAIN Stop: 04/04/19 12:25 Last Admin: 03/29/19 04:23 Dose: 2 tab Documented by: Propofol (Diprivan Inj 200 Mg/20 Ml Vial) 124.3 mg IV NOW ONE Stop: 03/28/19 09:39 Last Admin: 03/28/19 11:45 Dose: Not Given Documented by: Propofol (Diprivan Inj 200 Mg/20 Ml Vial) 50 mg IV NOW ONE Stop: 03/28/19 10:04 Last Admin: 03/28/19 10:02 Dose: 50 mg Documented by: Labs- Entire Visit 03/28/19 03/28/19 03/28/19 09:15 09:15 09:15 WBC 9.0 RBC 5.99 H Hgb 16.7 H Hct 51.3 H MCV 86 MCH 27.9 MCHC 32.5 RDW 17.3 H Plt Count 247 Seg Neutrophils % 82.0 H Lymphocytes % 11.9 L Monocytes % 4.4 Eosinophils % 0.9 Basophils % 0.8 Absolute Neutrophils 7.4 Absolute Lymphocytes 1.1 Absolute Monocytes 0.4 Absolute Eosinophils 0.1 Absolute Basophils 0.1 PT 12.3 INR 0.91 APTT 26.7 Sodium 143.1 Potassium 3.4 L Chloride 101 Carbon Dioxide 33 H Anion Gap 9 BUN 24 H Creatinine 1.03 Est GFR ( Amer) > 60 Est GFR (Non-Af Amer) 53 L Glucose 93 Hemoglobin A1c % Calcium 9.1 Magnesium Total Bilirubin Direct Bilirubin Neonat Total Bilirubin Neonat Direct Bilirubin Neonat Indirect Bili AST ALT Alkaline Phosphatase Creatine Kinase CK-MB (CK-2) Troponin I Total Protein Albumin Triglycerides Cholesterol LDL Cholesterol Direct VLDL Cholesterol HDL Cholesterol TSH Blood Type Antibody Screen 03/28/19 03/28/19 03/28/19 09:15 09:15 09:15 WBC RBC Hgb Hct MCV MCH MCHC RDW Plt Count Seg Neutrophils % Lymphocytes % Monocytes % Eosinophils % Basophils % Absolute Neutrophils Absolute Lymphocytes Absolute Monocytes Absolute Eosinophils Absolute Basophils PT INR APTT Sodium Potassium Chloride Carbon Dioxide Anion Gap BUN Creatinine Est GFR ( Amer) Est GFR (Non-Af Amer) Glucose Hemoglobin A1c % Calcium Magnesium Total Bilirubin Direct Bilirubin Neonat Total Bilirubin Neonat Direct Bilirubin Neonat Indirect Bili AST ALT Alkaline Phosphatase Creatine Kinase 102 CK-MB (CK-2) 1.15 Troponin I 0.017 Total Protein Albumin Triglycerides Cholesterol LDL Cholesterol Direct VLDL Cholesterol HDL Cholesterol TSH Blood Type Cancelled Antibody Screen Cancelled 03/28/19 03/28/19 03/28/19 10:27 15:50 15:50 WBC RBC Hgb Hct MCV MCH MCHC RDW Plt Count Seg Neutrophils % Lymphocytes % Monocytes % Eosinophils % Basophils % Absolute Neutrophils Absolute Lymphocytes Absolute Monocytes Absolute Eosinophils Absolute Basophils PT INR APTT Sodium Potassium Chloride Carbon Dioxide Anion Gap BUN Creatinine Est GFR ( Amer) Est GFR (Non-Af Amer) Glucose Hemoglobin A1c % Calcium Magnesium Total Bilirubin Direct Bilirubin Neonat Total Bilirubin Neonat Direct Bilirubin Neonat Indirect Bili AST ALT Alkaline Phosphatase Creatine Kinase 141 H CK-MB (CK-2) 1.48 Troponin I 0.032 Total Protein Albumin Triglycerides Cholesterol LDL Cholesterol Direct VLDL Cholesterol HDL Cholesterol TSH Blood Type A POSITIVE Antibody Screen NEGATIVE 03/28/19 03/28/19 03/29/19 21:42 21:42 04:19 WBC 8.0 RBC 5.21 Hgb 14.7 Hct 44.5 MCV 85 MCH 28.1 MCHC 33.0 RDW 16.9 H Plt Count 186 Seg Neutrophils % 70.7 Lymphocytes % 20.1 Monocytes % 6.9 Eosinophils % 2.0 Basophils % 0.3 Absolute Neutrophils 5.7 Absolute Lymphocytes 1.6 Absolute Monocytes 0.6 Absolute Eosinophils 0.2 Absolute Basophils 0.0 PT INR APTT Sodium Potassium Chloride Carbon Dioxide Anion Gap BUN Creatinine Est GFR ( Amer) Est GFR (Non-Af Amer) Glucose Hemoglobin A1c % Calcium Magnesium Total Bilirubin Direct Bilirubin Neonat Total Bilirubin Neonat Direct Bilirubin Neonat Indirect Bili AST ALT Alkaline Phosphatase Creatine Kinase 161 H CK-MB (CK-2) 1.47 Troponin I 0.017 Total Protein Albumin Triglycerides Cholesterol LDL Cholesterol Direct VLDL Cholesterol HDL Cholesterol TSH Blood Type Antibody Screen 03/29/19 03/29/19 03/29/19 04:19 04:19 04:19 WBC RBC Hgb Hct MCV MCH MCHC RDW Plt Count Seg Neutrophils % Lymphocytes % Monocytes % Eosinophils % Basophils % Absolute Neutrophils Absolute Lymphocytes Absolute Monocytes Absolute Eosinophils Absolute Basophils PT 12.8 INR 0.96 APTT Sodium 139.2 Potassium 3.7 Chloride 100 Carbon Dioxide 32 H Anion Gap 7 BUN 23 H Creatinine 1.06 Est GFR ( Amer) > 60 Est GFR (Non-Af Amer) 51 L Glucose 101 Hemoglobin A1c % 5.2 Calcium 8.9 Magnesium 2.5 H Total Bilirubin 0.5 Direct Bilirubin 0.2 Neonat Total Bilirubin Not Reportable Neonat Direct Bilirubin Not Reportable Neonat Indirect Bili Not Reportable AST 26 ALT 17 Alkaline Phosphatase 86 Creatine Kinase CK-MB (CK-2) Troponin I Total Protein 5.8 L Albumin 3.4 L Triglycerides 110 Cholesterol 127.22 LDL Cholesterol Direct 56 VLDL Cholesterol 22.0 HDL Cholesterol 54 TSH Blood Type Antibody Screen 03/29/19 04:19 WBC RBC Hgb Hct MCV MCH MCHC RDW Plt Count Seg Neutrophils % Lymphocytes % Monocytes % Eosinophils % Basophils % Absolute Neutrophils Absolute Lymphocytes Absolute Monocytes Absolute Eosinophils Absolute Basophils PT INR APTT Sodium Potassium Chloride Carbon Dioxide Anion Gap BUN Creatinine Est GFR ( Amer) Est GFR (Non-Af Amer) Glucose Hemoglobin A1c % Calcium Magnesium Total Bilirubin Direct Bilirubin Neonat Total Bilirubin Neonat Direct Bilirubin Neonat Indirect Bili AST ALT Alkaline Phosphatase Creatine Kinase CK-MB (CK-2) Troponin I Total Protein Albumin Triglycerides Cholesterol LDL Cholesterol Direct VLDL Cholesterol HDL Cholesterol TSH 12.30 H Blood Type Antibody Screen Wrist X-Ray 03/28/19 07:18 IMPRESSION: Fracture dislocation of the distal radius and ulna. Wrist X-Ray 03/28/19 10:32 IMPRESSION: Successful closed reduction. EKG: Sinus rhythm. Nonspecific IVCD. No changes of ischemia or IL. Patient's echocardiogram shows normal LV ejection fraction. No significant valvular disease. [Please see report]. IMPRESSION/RECOMMENDATION.: 1. Accidental fall resulting in closed fracture of the left radius. Patient for surgical repair of this tomorrow. 2. Hypothyroid state in the patient with history of hypothyroidism: Would recommend increase the patient's thyroid replacement. Will increase the patient's thyroid replacement to 75 mcg p.o. daily. 3. Hypertension: Blood pressure slightly elevated due to the most likely pain. Continue antihypertensives. 4. Chronic kidney disease at present stage III A. Avoid nephrotoxic drugs. With fluid resuscitation would be cautious not to volume overload the patient 5. COPD: No evidence of acute exacerbation. Recommend getting a chest x-ray for baseline. 6. Hyperlipidemia: Continue statins. 7. Morbid obesity. 8. Preoperative cardiac risk assessment. The patient will be an acceptable/low cardiac risk for this procedure. In view of the patient's hypothyroid state would be cautious with all medication dosages. In spite of the patient being low/acceptable cardiac risks I have discussed the risk of stroke IL congestive heart failure and arrhythmias with the patient. Also EKG and echo findings and lab test discussed with the patient. Would postoperatively recommend serial EKGs and enzymes. Medical decision making is of high complexity. 60 minutes spent on this patient, with more than 50% of time spent in direct patient care.. Management plan discussed with attending physician on the case, and with orthopedics. Will follow.
[2019-03-30] MEDS: CEFAZOLIN SODIUM 2 GM in DEXTROSE 5%-WATER 100 ML IV SCH ×3 (00:07→12:57)
[2019-03-30] MEDS ORDERED: LEVOTHYROXINE SODIUM 0.05 MG TABLET PO SCH (06:00)
[2019-03-30 06:53] LABS: HEMATOCRIT 43.3 % (36.0-47.0); HEMOGLOBIN 14.2 g/dL (12.0-15.5); MEAN CORPUSCULAR HGB CONC 32.7 g/dL (32.0-36.0); MEAN CORPUSCULAR VOLUME 86 fl (80-97); PLATELET COUNT 165 10^3/uL (150-450); RED BLOOD COUNT 5.06 10^6/uL (3.72-5.28); RED CELL DISTRIBUTION WIDTH 16.6 % (11.5-14.0); WHITE BLOOD COUNT 7.2 10^3/uL (4.0-10.5)
[2019-03-30 06:56] LABS: INTERNATIONAL RATION (INR) 1.02; PARTIAL THROMBOPLASTIN TIME 27.4 SEC (23.5-35.8); PROTHROMBIN TIME 13.4 SEC (11.4-15.4)
[2019-03-30] MEDS ORDERED: BUPIVACAINE HCL 0.5 % INJ/PF 30 ML SDV ONE (07:12)
[2019-03-30] MEDS ORDERED: LIDOCAINE 1% INJ-PF (10 MG/ML) 30 ML SDV ONE (07:13)
[2019-03-30 07:23] LABS: ALANINE AMINOTRANSFERASE 20 U/L (9-52); ALBUMIN 3.4 g/dL (3.5-5.0); ALKALINE PHOSPHATASE 87 U/L (38-126); ANION GAP 7 (5-19); ASPARTATE AMINO TRANSFERASE 32 U/L (14-36); BILIRUBIN,DIRECT 0.2 mg/dL (0.0-0.4); BILIRUBIN,TOTAL 0.5 mg/dL (0.2-1.3); BLOOD UREA NITROGEN 17 mg/dL (7-20); CALCIUM 8.8 mg/dL (8.4-10.2); CARBON DIOXIDE 35 mmol/L (22-30); CHLORIDE 97 mmol/L (98-107); GLUCOSE 100 mg/dL (75-110); POTASSIUM 3.4 mmol/L (3.6-5.0); SODIUM 138.9 mmol/L (137-145); TOTAL PROTEIN 5.9 g/dL (6.3-8.2)
[2019-03-30] MEDS ORDERED: ONDANSETRON HCL INJ/PF 4 MG/2 ML SDV ONE (07:32)
[2019-03-30] MEDS ORDERED: MIDAZOLAM 2 MG/2 ML INJ ONE (07:32)
[2019-03-30] MEDS ORDERED: FENTANYL CITRATE INJ/PF 100 MCG/2 ML AMPUL ONE (07:32)
[2019-03-30] MEDS ORDERED: PROPOFOL INJ 200 MG/20 ML VIAL IV ONE ×2 (07:32→08:25)
[2019-03-30] MEDS ORDERED: MORPHINE SULFATE 10 MG/ML INJ ONE (07:32)
[2019-03-30] MEDS ORDERED: DEXAMETHASONE SOD PHOSPHATE INJ 4 MG/1 ML VIAL ONE (07:32)
[2019-03-30] MEDS ORDERED: FUROSEMIDE 80 MG TABLET PO SCH (08:00)
--- NOTE | 2019-03-30 08:48 | RADIOLOGY REPORT (SQ) ---
EXAM DESCRIPTION: CHEST SINGLE VIEW COMPLETED DATE/TIME: 03/30/2019 7:37 am REASON FOR STUDY: COPD COMPARISON: 2007 NUMBER OF VIEWS: One view. TECHNIQUE: Single frontal radiographic view of the chest acquired. LIMITATIONS: None. FINDINGS: LUNGS AND PLEURA: No opacities, masses or pneumothorax. No pleural effusion. MEDIASTINUM AND HILAR STRUCTURES: No masses. Contour normal. HEART AND VASCULAR STRUCTURES: Heart enlarged without failure. Normal vasculature. BONES: No acute findings. HARDWARE: None in the chest. OTHER: No other significant finding. IMPRESSION: HEART ENLARGED WITHOUT FAILURE. NO OTHER SIGNIFICANT RADIOGRAPHIC FINDING IN THE CHEST. TECHNICAL DOCUMENTATION: JOB ID: [id number] [employer]- All Rights Reserved Reading location - IP/workstation name: [email or web address]
[2019-03-30] MEDS ORDERED: MEPERIDINE HCL/PF INJ 25 MG/1 ML DISP.SYRIN IV PRN (08:54)
[2019-03-30] MEDS ORDERED: FENTANYL CITRATE INJ/PF 100 MCG/2 ML AMPUL IV PRN ×3 (08:54)
[2019-03-30] MEDS ORDERED: PROMETHAZINE HCL INJ 25 MG/1 ML VIAL IV PRN ×2 (08:54)
[2019-03-30] MEDS ORDERED: MORPHINE SULFATE 10 MG/ML INJ IV PRN (08:54)
[2019-03-30] MEDS ORDERED: DIPHENHYDRAMINE HCL 50 MG/ML VIAL IV PRN (08:54)
--- NOTE | 2019-03-30 09:53 | Operative Report ---
Operative Report DATE OF SURGERY: 03/30/19 PREOPERATIVE DIAGNOSIS: Left intra-articular distal radius fracture POSTOPERATIVE DIAGNOSIS: Same OPERATION: Open reduction to fixation left less than 2 parts intra-articular distal radius fracture SURGEON: ZEN MCKENNA ANESTHESIA: GA COMPLICATIONS: None ESTIMATED BLOOD LOSS: Less than 25 cc PROCEDURE: Indication for above procedure: 69-year-old female who sustained a fall onto her outstretched left wrist. Patient was seen at the emergency room where there is a small puncture and proximal to the fracture site and was started on antibiotics and closed reduction performed. Patient was admitted to the hospital for medical clearance to proceed with operative intervention. Risk and benefits of the surgical procedure were explained patient verbalized understanding consented for surgical procedure. Procedure In Detail: Patient was seen and evaluated in the preoperative holding area. The upper extremity was initialized and marked. Patient received 2g of Ancef IV for bacterial prophylaxis scheduled. Patient was taken back to the operative room where transferred to the operative table and placed under general anesthesia. Once they were adequately anesthetized and a nonsterile tourniquet was placed on his upper extremity. A surgical team debriefing was performed ensuring all inst rumentation was available, the surgical procedure was discussed with possible concerns reviewed. The upper extremity was prepped with chlorhexidine and alcohol and draped in a sterile fashion. A timeout was done identifying correct patient, procedure and extremity everyone in attendance agree with this and verbalized no concerns.The extremity was exsanguinated the tourniquet was inflated to 250 mmHg. A longitudinal skin incision was made via a volar approach of Vijay along the FCR tendon sheath. The FCR tendon sheath was opened and the FCR retracted ulnarly, the palmar cutaneous branch of the median nerve was identified and protected throughout the entirety of the case. The radial artery was identified and retracted radially. Blunt dissection was performed to the FPL which was carefully sweeped ulnarly. This brought me to the pronator quadratus which was elevated off of the distal radius via sharp dissection with a 15 blade to allow later repair. The fracture was then identified the small puncture wound was proximal and ulnar to the midline away from the distal radius fracture and ulna thus unlikely indicating open fracture. A reduction maneuver was performed to the fracture utilizing a [place] elevator. Acceptable reduction was then obtained and a Acumed 3 hole volar distal radius plate was placed into position and fixated with a K wire distally x2. AP and lateral radiographs were then obtained demonstrating appropriate placement of the plate and acceptable reduction of the fracture. Using a reduction tenaculum I was able to bring the plate down to bone distally. After drilling distally a cortical screw was used bringing the plate further down to bone, avoiding any liftoff of the plate from the volar cortex that could cause flexor tendon irritation post-operativley. Drilling the near cortex and to but not thru the far cortex a locking screw was then placed in the remaining holes. The previous cortex screw was removed and replaced with a locking screw. T nondisplaced intra-articular fracture at the radial styloid was fixated with two additional screws placed into the styloid adequate stability to the radial styloid piece. AP and lateral radius were then done confirming appropriate placement of plate with no evidence of penetration intra-articular or within the DRUJ. I then turned my attention to the proximal screws. I drilled bicortically bringing the plate down to bone with a cortex screw. The remaining 2 holes proximally were drilled bicortically placing the appropriate size cortex in the proximal most hole and a locking screw in the distal shaft hole. AP and lateral radiographs were done confirming appropriate placement of the plate and reduction of the fracture there was confucianism of radial height, radial inclination and volar tilt. No evidence of dorsal screw prominence or intra-articular penetration of the DRUJ or radiocarpal joint. Longitudinal skin incision was made along the radial border of the ring finger 1 cm proximal to Bourne cardinal line. Blunt dissection was performed volar antebrachial fascia was incised. Transverse carpal ligament was identified and released distally at the level of the adipose protecting the superficial palmar arch. Proximal aspect of the transverse carpal ligament and volar antebrachial fascia was released under direct visualization. At completion there is no residual compression of the median nerve. No evidence of median nerve injury however there was compression at the wrist flexion crease. The wound was copiously irrigated with normal saline. There was no evidence of DRUJ instability on examination, Negative Roman's test, No crepitus with range of motion at the radiocarpal joint or DRUJ. The pronator quadratus was closed with interrupted 3-0 Monocryl suture. Subcutaneous tissues were closed with interrupted 4-0 Monocryl suture. The skin was closed with a running horizontal mattress 4-0 nylon suture tourniquet was deflated any peripheral bleeding was c ontrolled with bipolar cautery into the wound was dry.. 20 mL of 0.5% Marcaine were injected for postoperative pain control. Was dressed with sterile 4 x 4's and patient was placed in a well-padded volar splint. Sponge counts, instrument counts and needle counts were correct. There was no intraoperative complications patient tolerated procedure well stable to PACU. Postoperative plan: Patient will be switched to a removal brace at first postoperative followup visit and begin range of motion. Patient is encouraged to start vitamin C 500 mg daily for 51 days. Will obtain radiographs at followup of the wrist.
[2019-03-30] MEDS ORDERED: (PENDING PHARMACY ID) (Potassium Chloride [K-Tab Er] 20 MEQ) PO SCH (10:00)
[2019-03-30] MEDS ORDERED: IPRATROPIUM/ALBUTEROL 0.5-2.5 MG/3 ML AMPUL NEB ONE (10:04)
[2019-03-30] MEDS ORDERED: METOPROLOL SUCCINATE 50 MG TAB.SR.24H PO SCH (10:30)
--- NOTE | 2019-03-30 12:00 | RADIOLOGY REPORT (SQ) ---
EXAM DESCRIPTION: NO CHG FLUORO; WRIST LEFT 2 VIEWS COMPLETED DATE/TIME: 03/30/2019 11:47 am REASON FOR STUDY: ORIF LEFT WRIST COMPARISON: None. FLUOROSCOPY TIME: 34 seconds 4 images saved to PACS. TECHNIQUE: Intra-operative images acquired during surgical procedure to evaluate progress. NUMBER OF IMAGES: 4 LIMITATIONS: None. FINDINGS: Fluoroscopic images from plate and screw fixation of distal radial fracture. Alignment is near anatomic. IMPRESSION: IMAGE(S) OBTAINED DURING PROCEDURE. COMMENT: Quality ID [id number]: Final reports for procedures using fluoroscopy that document radiation exp osure indices, or exposure time and number of fluorographic images (if radiation exposure indices are not available) Please consult full operative report of the attending physician for description of the procedure. TECHNICAL DOCUMENTATION: JOB ID: [id number] [employer]- All Rights Reserved Reading location - IP/workstation name: [email or web address]
--- NOTE | 2019-03-30 12:00 | RADIOLOGY REPORT (SQ) ---
EXAM DESCRIPTION: NO CHG FLUORO; WRIST LEFT 2 VIEWS COMPLETED DATE/TIME: 03/30/2019 11:47 am REASON FOR STUDY: ORIF LEFT WRIST COMPARISON: None. FLUOROSCOPY TIME: 34 seconds 4 images saved to PACS. TECHNIQUE: Intra-operative images acquired during surgical procedure to evaluate progress. NUMBER OF IMAGES: 4 LIMITATIONS: None. FINDINGS: Fluoroscopic images from plate and screw fixation of distal radial fracture. Alignment is near anatomic. IMPRESSION: IMAGE(S) OBTAINED DURING PROCEDURE. COMMENT: Quality ID 145: Final reports for procedures using fluoroscopy that document radiation exp osure indices, or exposure time and number of fluorographic images (if radiation exposure indices are not available) Please consult full operative report of the attending physician for description of the procedure. TECHNICAL DOCUMENTATION: JOB ID: [id number] [employer]- All Rights Reserved Reading location - IP/workstation name: [email or web address]
[2019-03-30] MEDS: POTASSIUM CHLORIDE 10 MEQ CAPSULE.ER PO SCH (12:57)
[2019-03-30] MEDS: MAGNESIUM OXIDE 400 MG TABLET PO SCH (12:58)
[2019-03-30] MEDS: PREGABALIN 50 MG CAPSULE PO SCH (12:58)
[2019-03-30] MEDS: NICOTINE 14 MG/24 HR PATCH.TD24 TD SCH (12:59)
[2019-03-30] MEDS: FAMOTIDINE INJ/PF 20 MG/2 ML SDV IV SCH (12:59)
[2019-03-30] MEDS ORDERED: SUCCINYLCHOLINE CHLORIDE INJ 200 MG/10 ML VIAL ONE (14:19)
[2019-03-30] MEDS ORDERED: POTASSIUM CHLORIDE 10 MEQ CAPSULE.ER PO ONE (16:13)
--- NOTE | 2019-03-30 16:32 | PDOC DISCHARGE SUMMARY ---
General - Admit/Disc Date/PCP Admission Date/Primary Care Provider: 03/28/19 10:49 TC HARGROVE MD Discharge Date: 03/30/19 - Discharge Diagnosis (1) Colles' fracture of left radius Is this a current diagnosis for this admission?: Yes Summary: She was seen by orthopedic surgery on the day of admission. Unfortunately she had a fall at home and sustained this left wrist fracture. She was taken to the OR today after temporary cast was placed initially. She has undergone defini tive surgery with Dr. jacob and plan for follow-up has been made. She is doing well in this regard. He discharged her with oxycodone which may be sufficient for about 3 days of pain control. I have recommended that she try to not use any oxycodone and to use Tylenol instead. If she needs the oxycodone I counseled her on the problems related to developing dependence after as little as 3 days of use. She will discuss this with her doctor as well she needs to use the oxycodone at home. (2) CKD (chronic kidney disease) Is this a current diagnosis for this admission?: No Summary: Not clinically significant at this time. Recommend PCP follow-up. (3) Fall Is this a current diagnosis for this admission?: Yes Summary: Patient had a mechanical fall at home, he in the morning, she tripped over her dog near some stairs. He is ambulating without difficulty postoperatively. Not think there is a need for PT at this time. (4) HTN (hypertension) Is this a current diagnosis for this admission?: Yes Summary: His blood pressure was slightly elevated on discharge and I think this is rela nalini to postoperative pain. She has started on her regular home medications upon discharge. (5) Hypokalemia Is this a current diagnosis for this admission?: Yes Summary: Takes Lasix as an outpatient. She is also on potassium supplementation and she will start all of her home meds upon discharge. She had a potassium of 3.4 on the morning of discharge. She received 40 mEq of oral potassium today. (6) Hypothyroidism Is this a current diagnosis for this admission?: Yes Summary: Patient's TSH was elevated. We have increased her Synthroid dose sent a new pre scription to her pharmacy, and patient knows that she needs to discuss this with her primary care doctor. (7) Chronic diastolic CHF (congestive heart failure) Is this a current diagnosis for this admission?: Yes Summary: Seen on echocardiogram during this hospitalization. 1 out of 4 diastolic heart failure. Preserved ejection fraction. She will discuss with her primary care physician and she will have CHF teaching prior to discharge. - Additional Information Resuscitation Status: Full Code Discharge Diet: As Tolerated Discharge Activity: Activity As Tolerated, Balance Activity w/Rest, No Lifting Over 10 Pounds, No Lifting/Push/Pulling Prescriptions: Levothyroxine Sodium [Synthroid 0.05 mg Tablet] 0.075 mg PO Q6AM 30 Days #30 tablet Oxycodone HCl/Acetaminophen [Percocet 5-325 mg Tablet] 1 tab PO Q6 PRN #25 tab PRN Reason: Home Medications: Albuterol Sulfate [Proair HFA Inhalation Aerosol 8.5 gm MDI] 2 puff IH Q6HP PRN 03/28/19 Furosemide [Lasix 80 mg Tablet] 80 mg PO QPM 03/28/19 Furosemide [Lasix 80 mg Tablet] 120 mg PO QAM 03/28/19 Hydralazine HCl [Apresoline 10 mg Tablet] 10 mg PO Q8 03/28/19 Magnesium Oxide [Mag-Ox 400 mg Tablet] 400 mg PO BID 03/28/19 Metoprolol Succinate [Toprol Xl 50 mg Tab.sr] 25 mg PO DAILY 03/28/19 Potassium Chloride [K-Tab ER] 20 meq PO DAILY 03/28/19 Pregabalin [Lyrica 50 mg Capsule] 50 mg PO Q12 03/28/19 Simvastatin [Zocor 40 mg Tablet] 40 mg PO QHS 03/28/19 Levothyroxine Sodium [Synthroid 0.05 mg Tablet] 0.075 mg PO Q6AM 30 Days #30 tablet 03/30/19 Oxycodone HCl/Acetaminophen [Percocet 5-325 mg Tablet] 1 tab PO Q6 PRN #25 tab 03/30/19 History of Present Illness History of Present Illness: SÁNCHEZ TRISTAN is a 69 year old woman. With history of hypertension, chronic kidney disease, COPD on home oxygen came to the emergency room after history of fall at home 6:00 this morning. According to the patient she is letting the dogs out she is tripped on the steps and hit the dog cage and came to the emergency room with right wrist pain x-rays indicates right arm distal radius and ulna fracture. The ER physician spoke to Dr. Bon Ray is going to see the patient today and probably do surgery tomorrow. Dr. Garcia also spoke to Dr. Beard he wants to do the echocardiogram today and he will see the patient. I went to see the patient she is comfortably in the bed communicating well agreed to stay in the hospital for further management. Hospital Course Hospital Course: Please see hospital course by problem list above. In addition patient was seen by Dr. Beard our chief clerk for a pre-operative evaluation. She was deemed to have an acceptable profile for surgery though the possibility of risks and complications was discussed with her extensively. Now she is about 6 hours postop and she is doing very well. She is stable for discharge home. She is asked to see her primary care doctor within the week for a discharge follow-up. She knows to return to medical care with any concerning symptoms. Physical Exam Vital Signs: Temp Pulse Resp BP Pulse Ox 98 F 88 18 166/84 H 95 03/30/19 10:40 03/30/19 10:40 03/30/19 10:40 03/30/19 10:40 03/30/19 10:40 Intake & Output 03/29/19 03/30/19 03/31/19 06:59 06:59 06:59 Intake Total 1000 1140 2775 Output Total 200 905 Balance 1379 743 2266 Weight 125.7 kg 125.3 kg General appearance: PRESENT: no acute distress, cooperative, obese Head exam: PRESENT: atraumatic, normocephalic Eye exam: PRESENT: EOMI. ABSENT: conjunctival injection, scleral icterus Mouth exam: PRESENT: tongue midline Neck exam: ABSENT: tenderness, tracheostomy Respiratory exam: PRESENT: decreased breath sounds, prolonged expiratory phas, unlabored. ABSENT: rales, wheezes Cardiovascular exam: PRESENT: RRR. ABSENT: systolic murmur Pulses: PRESENT: normal radial pulses GI/Abdominal exam: PRESENT: normal bowel sounds, soft. ABSENT: distended, tenderness Rectal exam: PRESENT: deferred Gentrourinary exam: ABSENT: indwelling catheter Extremities exam: ABSENT: pedal edema Musculoskeletal exam: PRESENT: ambulatory, other - Left arm in a postoperative cast Neurological exam: PRESENT: alert, awake, oriented to person, oriented to place, oriented to situation, CN II-XII grossly intact, normal gait Psychiatric exam: PRESENT: appropriate affect. ABSENT: anxious Skin exam: PRESENT: dry, intact, warm Results Laboratory Results: 03/30/19 06:07 03/30/19 06:07 03/30/19 03/30/19 06:07 06:07 WBC 7.2 RBC 5.06 Hgb 14.2 Hct 43.3 MCV 86 MCH 28.0 MCHC 32.7 RDW 16.6 H Plt Count 165 Sodium 138.9 Potassium 3.4 L Chloride 97 L Carbon Dioxide 35 H Anion Gap 7 BUN 17 Creatinine 0.95 Est GFR ( Amer) > 60 Est GFR (Non-Af Amer) 58 L Glucose 100 Calcium 8.8 Total Bilirubin 0.5 AST 32 ALT 20 Alkaline Phosphatase 87 Total Protein 5.9 L Albumin 3.4 L 03/28/19 03/28/19 03/28/19 09:15 09:15 15:50 Creatine Kinase 102 141 H CK-MB (CK-2) 1.15 Troponin I 0.017 03/28/19 03/28/19 03/28/19 15:50 21:42 21:42 Creatine Kinase 161 H CK-MB (CK-2) 1.48 1.47 Troponin I 0.032 0.017 Impressions: Fluoroscopy 03/30/19 00:00 IMPRESSION: IMAGE(S) OBTAINED DURING PROCEDURE. Wrist X-Ray 03/30/19 00:00 IMPRESSION: IMAGE(S) OBTAINED DURING PROCEDURE. Chest X-Ray 03/30/19 06:00 IMPRESSION: HEART ENLARGED WITHOUT FAILURE. NO OTHER SIGNIFICANT RADIOGRAPHIC FINDING IN THE CHEST. Qualifiers - * PATIENT BEING DISCHARGED WITH ANY OF THE FOLLOWING DIAGNOSIS: No Acute Heart Failure - Is this a Heart Failure Patient?: Yes Documentation of LVEF assessment?: Yes LVEF < 40%?: No- if no continue to question #3 3. Anticoagulant therapy for permanect/persistent/paraoxysmal Afib or Aflutter: N/A Follow-up Appointment scheduled within 7 days?: No, document reason - Sunday, will be scheuled tomorrow
[2019-03-30 16:44] VITALS: BP 137/60
== END 2019-03-30 16:55 | disposition home health service (06) | DRG 511 ==
LOC: ER 07:17 → EH 10:49 → 3W 14:37
PROVIDERS: ADMIT Internal Medicine; ATTEND Internal Medicine
PROC: 0PSJXZZ Reposition Left Radius, External Approach (ICD-10-PCS; 2019-03-28)
PROC: 0PSJ04Z Reposition Left Radius with Internal Fixation Device, Open Approach (ICD-10-PCS; principal; 2019-03-30 08:00)
DX: S52.532B Colles' fracture of left radius, initial encounter for open fracture type I or II (principal); Z68.42 Body mass index [BMI] 45.0-49.9, adult; I50.32 Chronic diastolic (congestive) heart failure; I13.0 Hypertensive heart and chronic kidney disease with heart failure and stage 1 through stage 4 chronic kidney disease, or unspecified chronic kidney disease; S52.202A Unspecified fracture of shaft of left ulna, initial encounter for closed fracture; J44.9 Chronic obstructive pulmonary disease, unspecified; E87.6 Hypokalemia; E03.9 Hypothyroidism, unspecified; E78.5 Hyperlipidemia, unspecified; E78.00 Pure hypercholesterolemia, unspecified; F17.210 Nicotine dependence, cigarettes, uncomplicated; E66.9 Obesity, unspecified; N18.9 Chronic kidney disease, unspecified; W01.0XXA Fall on same level from slipping, tripping and stumbling without subsequent striking against object, initial encounter; G56.02 Carpal tunnel syndrome, left upper limb; R09.02 Hypoxemia
CPT/HCPCS: 36415; 71045; 80048; 80053; 80061; 82550; 82553; 82962; 83036; 83735; 84443; 84484; 85025; 85027; 85610; 85730; 86850; 86900; 86901; 90471; 90715; 93005; 93010; 93306; 96374; 96375; 99285; 99406; 99152; J0330; J0690; J1100; J2250; J2270; J2405; J2704; J3010; J3490; J7060; J7620; S0028

== ENCOUNTER → 2019-08-06 | Outpatient (CLI) | payer MEDICARE, OTHER ==
--- NOTE | 2019-08-06 10:40 | WOMENS IMAGING REPORT ---
EXAM DESCRIPTION: 3D SCREENING MAMMO BILAT COMPLETED DATE/TIME: 08/06/2019 10:06 am REASON FOR STUDY: Z12.31 SCREENING MAMMO Z12.31 ENCNTR SCREEN MAMMOGRAM FOR MALIGNANT NEOPLASM OF B RE COMPARISON: Multiple since 2008 EXAM PARAMETERS: Views: Standard craniocaudal and mediolateral oblique views of each breast recorded using digital acquisition and breast tomosynthesis. Read with the assistance of CAD. .[facility] - [employer] Investigation Lieutenant Version 9.2 LIMITATIONS: None. FINDINGS: No suspicious masses, suspicious calcifications or architectural distortion. No areas of c oncern. IMPRESSION: NEGATIVE MAMMOGRAM. BIRADS 1. BREAST DENSITY: b. There are scattered areas of fibroglandular density. BIRAD: ASSESSMENT: 1 NEGATIVE RECOMMENDATION: ROUTINE SCREENING Please continue yearly bilateral screening mammography/tomosynthesis in July 2020 COMMENT: The patient has been notified of the results by letter per SA requirements. Additional no tification policies are in place for contacting patient with suspicious or incomplete findings. Quality ID #225: The [employer] recommends an annual screening mammogram for women aged 40 years or over. This facility utilizes a reminder system to ensure that all patients receive reminder letters, and/or direct phone calls for appointments. This includes reminders for routine scr eening mammograms, diagnostic mammograms, or other Breast Imaging Interventions when appropriate. Th is patient will be placed in the appropriate reminder system. TECHNICAL DOCUMENTATION: FINDING NUMBER: (1) ASSESSMENT: (1) JOB ID: [id number] [email or web address]- All Rights Reserved Reading location - IP/workstation name: [email or web address]
== END ==
LOC: WI 09:25
PROVIDERS: ATTEND Family Medicine
DX: Z12.31 Encounter for screening mammogram for malignant neoplasm of breast (principal)
CPT/HCPCS: 77063; 77067

== ENCOUNTER → 2019-11-21 | Outpatient (CLI) | payer MEDICARE, OTHER ==
--- NOTE | 2019-11-21 16:15 | RADIOLOGY REPORT (SQ) ---
EXAM DESCRIPTION: CT LT UPPER EXTREMITY WITHOUT COMPLETED DATE/TIME: 11/21/2019 3:16 pm REASON FOR STUDY: S52.532A COLLES' FRACTURE OF LEFT RADIUS, INIT FOR CLOS FX S52.532A COLLES' FRACT URE OF LEFT RADIUS, INIT FOR CLOS FX COMPARISON: Radiographs March 2019. TECHNIQUE: Axial imaging performed through the left with reformatted coronal and sagittal imaging wi ndowed for bone and soft tissues. Images saved to PACS. 3D IMAGING: Were 3D images as MIP, SSD, or volume rendering performed at the work station? Yes. All CT scanners at this facility use dose modulation, iterative reconstruction, and/or weight based d osing when appropriate to reduce radiation dose to as low as reasonably achievable (ALARA). [facility]: Dose Right [facility]: CareDose [facility]: Dose Right [facility]: Teradose 4D [facility]: [employer] LIMITATIONS: None. RADIATION DOSE: CT Rad equipment meets quality standard of care and radiation dose reduction techniq ues were employed. CTDIvol: 4.6 mGy. DLP: 105 mGy-cm. mGy. FINDINGS: SOFT TISSUES: Limited assessment. No drainable fluid collections suggested. BONES: Previous open reduction internal fixation of distal radius fracture. Full are plate and screw hardware looks generally intact. Sizable bone defect at the fracture site. This involves the full thickness of the radius with no bone filling within. Persistent faint fracture lines are identified extending along the palmar aspect of this defect. MINERALIZATION: Normal. OTHER: No other significant finding. IMPRESSION: 1. Status post open reduction internal fixation distal radius fracture. Large gap in the distal radi us, potentially bone resorption. The operative images from March do not show such a defect, was signi ficant bone resected from this region? TECHNICAL DOCUMENTATION: JOB ID: [id number] Quality ID # [id number]: Final reports with documentation of one or more dose reduction techniques (e.g., Au tomated exposure control, adjustment of the mA and/or kV according to patient size, use of iterative reconstruction technique) 2010 [employer]- All Rights Reserved Reading location - IP/workstation name: [email or web address]
== END ==
LOC: RAD 14:55
PROVIDERS: ATTEND Orthopaedic Surgery
DX: S52.532A Colles' fracture of left radius, initial encounter for closed fracture (principal); X58.XXXA Exposure to other specified factors, initial encounter

== ENCOUNTER → 2020-08-09 | Outpatient (CLI) | payer MEDICARE, OTHER ==
--- NOTE | 2020-08-09 12:06 | WOMENS IMAGING REPORT ---
EXAM DESCRIPTION: 3D SCREENING MAMMO BILAT IMAGES COMPLETED DATE/TIME: 08/09/2020 10:55 am REASON FOR STUDY: Z12.31 ENCNTR SCREEN MAMMOGRAM FOR MALIGNANT NEOPLASM OF BREAST Z12.31 ENCNTR SCR EEN MAMMOGRAM FOR MALIGNANT NEOPLASM OF YISSEL COMPARISON: 2014 and subsequent. EXAM PARAMETERS: Standard craniocaudal and mediolateral oblique views of each breast recorded using digital acquisition and breast tomosynthesis. Read with the assistance of CAD. .[facility] - [employer] Operator Version 9.2 LIMITATIONS: None. FINDINGS: Findings present which are benign by mammographic criteria. No suspicious masses, calcific ations or architectural distortion. Pertinent benign findings: Small partially circumscribed stable masses in the right breast. Benign mammographic findings may include one or more of the following: Smooth masses, popcorn/rim/coa rse calcifications, asymmetries, post-procedure changes, and lesions with long-standing stability. IMPRESSION: BENIGN MAMMOGRAPHIC FINDINGS. BIRADS 2 BREAST DENSITY: b. There are scattered areas of fibroglandular density. BIRAD: ASSESSMENT: 2 BENIGN FINDING(S) RECOMMENDATION: ROUTINE SCREENING COMMENT: The patient has been notified of the results by letter per SA requirements. Additional no tification policies are in place for contacting patient with suspicious or incomplete findings. Quality ID #225: The [employer] recommends an annual screening mammogram for women aged 40 years or over. This facility utilizes a reminder system to ensure that all patients receive reminder letters, and/or direct phone calls for appointments. This includes reminders for routine scr eening mammograms, diagnostic mammograms, or other Breast Imaging Interventions when appropriate. Th is patient will be placed in the appropriate reminder system. TECHNICAL DOCUMENTATION: FINDING NUMBER: (1) ASSESSMENT: (1) JOB ID: [id number] 2010 [employer]- All Rights Reserved Reading location - IP/workstation name: [email or web address]
== END ==
LOC: WI 10:33
PROVIDERS: ATTEND Family Medicine
DX: Z12.31 Encounter for screening mammogram for malignant neoplasm of breast (principal)
CPT/HCPCS: 77063; 77067